=== PATIENT | female | born 1965 | race Caucasian/White ===

== ENCOUNTER 2016-11-24 22:53 | Emergency (ER) | payer OTHER, MEDICARE ==
[~2016-11-24] VITALS: Ht 175.3 cm; Wt 81.6 kg
[~2016-11-24 22:53] MED LIST: ADVIL200 MG PO; BETAMETHASONE D1 CRE TOP; BUSPIRONE HCL10 M1 PO; CARISOPRODOL350 MG PO; CLINDAMYCIN300 MG PO; DICLOFENAC SODI75 M3 PO; DULOXETINE HCL40 MG PO; DULOXETINE HYDR30 MG PO; GABAPENTIN600 M1 PO; GABAPENTIN600 MG PO; LIPITOR20 M2 PO; LOPRESSOR 25MG25 MG PO; LYRICA100 MG PO; MELATONIN3 M4 PO; METFORMIN HCL500 M2 PO; METHOCARBAMOL500 M1 PO; METOPROLOL TART50 MG PO; MS CONTIN30 M1 PO; MS CONTIN60 MG PO; NYSTATIN100000 U/2 TOP; OMEPRAZOLE D/R20 MG PO; OXYCODONE HCL10 M2 PO; OXYCODONE HYDRO10 M1 PO; OXYCODONE HYDRO15 MG PO; PERCOCET 325 MG1 TA2 PO; PLAVIX75 M1 PO; QUETIAPINE FUM100 M1 PO; QUETIAPINE FUM100 MG PO; REMERON 7.5MG7.5 MG PO; REMERON30 MG PO; SEROQUEL 100MG100 MG PO; SEROQUEL50 MG PO; SOMA350 M1 PO; SYNTHROID137 MCG PO; TYLENOL XSTR500 MG PO; VOLTAREN GEL1% TOP; XANAX0.25 M1 PO; XANAX0.5 MG PO; ZOFRAN ODT8 MG PO; ZOFRAN4 M1 SL
--- NOTE | 2016-11-24 23:19 | ED DYSPNEA/ASTHMA COMPLAINT ---
History of Present Illness General Chief Complaint: Dyspnea (COPD, CHF, Other) Stated Complaint: BIBA, SOB Source: patient Exam Limitations: no limitations Vital Signs & Intake/Output Vital Signs & Intake/Output Vital Signs Date Time Temp Pulse Resp B/P Pulse O2 O2 Flow FiO2 Ox Delivery Rate 11/25 0551 97.3 88 18 120/68 97 Room Air 11/25 0404 96.3 75 18 118/63 93 Room Air 11/24 2309 98.9 103 20 110/65 100 Room Air ED Intake and Output 11/25 0000 11/24 1200 Intake Total 0 Output Total Balance 0 Intake, Oral 0 Patient 180 lb Weight Allergies Coded Allergies: Penicillins (HIVES, RASH 02/24/16) hydromorphone (GI UPSET 02/24/16) Reconcile Medications Atorvastatin Calcium (Lipitor) 20 MG TABLET 20 MG PO DAILY HIGH CHOLESTEROL ( Reported) Buspirone HCl 10 MG TABLET 1 TAB PO BID depression (Reported) Buspirone HCl 10 MG TABLET 20 MG PO BID DEPRESSION (Reported) Carisoprodol (SOMA) 350 MG TABLET 350 MG PO DAILY SLEEP (Reported) Clopidogrel Bisulfate (Plavix) 75 MG TABLET (Unknown Dose) PO DIALY HIGH CHOLESTEROL (Reported) Duloxetine HCl 40 MG CAPSULE.DR 40 MG PO DAILY DEPRESSION (Reported) Gabapentin 600 MG TABLET 1 TAB PO TID pAIN (Reported) Levofloxacin (Levaquin) 500 MG TABLET 1 TAB PO DAILY bronchitis/pneumonia Levothyroxine Sodium (Synthroid) 0.075 MG TAB 0.075 MG PO DAILY AC THYROID ( Reported) Melatonin 3 MG TABLET 10 MG PO DAILY SLEEP (Reported) Metformin HCl (Metformin HCl ER) 500 MG TAB.ER.24 (Unknown Dose) PO BID DIABETIS (Reported) Methocarbamol 500 MG TABLET 1 TAB PO 4 TIMES/DAY muscle relaxant (Reported) Mirtazapine (Remeron 7.5MG (1/2 Of 15MG)) 7.5 MG HTAB 1 TAB PO QPM SLEEP/ MENTAL HEALTH (Reported) Morphine Sulfate (Ms Contin) [address] 1 TAB PO BID PAIN (Reported) Ondansetron (Zofran Odt) 4 MG TAB.RAPDIS 1 TAB SL TID PRN nausea Oxycodone HCl 10 MG TABLET 1 TAB PO Q6-PRN PRN pain (Reported) Pregabalin (Lyrica) 100 MG CAPSULE 1 CAP PO BID PAIN (Reported) Quetiapine Fumarate 100 MG TABLET 200 MG PO 0 Mental health Quetiapine Fumarate 100 MG TABLET 100 MG PO DAILY Mental health Triage Note: PT BIBA FROM HOME. PER EMS, PT COMPLAINING OF SOB THAT SHE HAS BEEN EXPERIENCING SINCE TUESDAY. PT RECENTLY WENT TO PCP AND WAS DIAGNOSED WITH BRONCHITIS, PT WAS PRESCRIBED PREDNISONE AND AZITHROMYCIN. PT STATES SHE HAS BEEN N/V, THEREFORE UNABLE TO KEEP DOWN PRESCRIBED MEDICATIONS. PT HAD 4 NEB TREATMENTS AT HOME WITH NO RELIEF. IN ROUTE TO ED, EMS ADMINISTERED 125 MG OF SOLU MEDROL, BS 241. UPON ED ARRIVAL PT ON 2L O2, O2 SAT 100%. PT COMPLAINING OF BACK PAIN AND TINGLING IN FINGERS AND TOES. PT ALERT AND ORIENTED. Triage Nurses Notes Reviewed? yes Onset: Gradual Duration: day(s): Timing: recent history Severity: mild, moderate Activities at Onset: none Prior Episodes/Possible Cause: occasional episodes Modifying Factors: Improves With: rest. Associated Symptoms: cough, wheezing HPI: 51-year-old woman, history of asthma, history of smoking, presents with 2-3 day history of cough, wheezing with phlegm. She states that she started azithromycin and prednisone by her primary care doctor, "but I am not better yet." She notes that, "I coughed so hard that I throw up.... And that I can't take my pain medications." She notes that she has no chest pain, fever, abdominal pain, nausea vomiting diarrhea. Past History Travel History Traveled to [place] past 21 day No Medical History Any Pertinent Medical History? 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 No Review of Systems Review of Systems Constitutional: Reports: no symptoms. EENTM: Reports: no symptoms. Respiratory: Reports: no symptoms. Cardiovascular: Reports: no symptoms. GI: Reports: no symptoms. Genitourinary: Reports: no symptoms. Musculoskeletal: Reports: no symptoms. Skin: Reports: no symptoms. Neurological/Psychological: Reports: no symptoms. Hematologic/Endocrine: Reports: no symptoms. Immunologic/Allergic: Reports: no symptoms. All Other Systems: Reviewed and Negative Physical Exam Physical Exam General Appearance: well developed/nourished, mild distress Head: atraumatic, normal appearance Eyes: Bilateral: normal appearance. Ears, Nose, Throat: normal pharynx, normal ENT inspection Neck: normal inspection, supple, full range of motion Respiratory: wheezing Cardiovascular: regular rate/rhythm Gastrointestinal: normal bowel sounds, soft, non-tender, no organomegaly Extremities: normal inspection, normal capillary refill, normal range of motion, no edema Neurologic/Psych: no motor/sensory deficits, awake, alert, oriented x 3 Skin: intact, normal color, warm/dry Core Measures ACS in differential dx? No Severe Sepsis Present: No Septic Shock Present: No Progress Differential Diagnosis: asthma, AMI Plan of Care: Orders Procedure Date/time Status TROPONIN LEVEL 11/25 0307 Complete EKG 11/25 0307 Active TROPONIN LEVEL 11/24 2318 Complete LIPASE 11/24 2318 Complete HEPATIC FUNCTION PANEL 11/24 2318 Complete D-DIMER 11/24 2318 Complete CBC WITHOUT DIFFERENTIAL 11/24 2318 Complete BASIC METABOLIC PANEL 11/24 2318 Complete AMYLASE 11/24 2318 Complete EKG 11/24 2254 Active Laboratory Tests 11/25/16 0400: Troponin I < 0.01 11/24/16 2325: Anion Gap 8, Estimated GFR > 60, BUN/Creatinine Ratio 13.3, Glucose 227 H, Calcium 8.9, Total Bilirubin 0.4, Direct Bilirubin 0.4, AST 22, ALT 27, Alkaline Phosphatase 132 H, Troponin I < 0.01, Total Protein 5.9 L, Albumin 3.1 L, Amylase < 30 L, Lipase 18 L, D-Dimer 385 H, CBC w Diff NO MAN DIFF REQ, RBC 4.05 L, MCV 88.1, MCH 29.2, RDW 14.6 H, MPV 8.4, Gran % 88.3 H, Lymphocytes % 5.4 L, Monocytes % 6.3, Eosinophils % 0, Basophils % 0 L, Absolute Granulocytes 5.4, Absolute Lymphocytes 0.3 L, Absolute Monocytes 0.4, Absolute Eosinophils 0, Absolute Basophils 0, PUBS MCHC 33.2 Diagnostic Imaging: Viewed by Me: Radiology Read. Discussed w/RAD: Radiology Read. Radiology Impression: ct angio - no vte... ground glass opacity consistent with inflammation. CXR Impression: ATELECTASIS VS INFILTRATE... FULL REPORT BELOW. Initial ED EKG: normal axis, normal intervals, normal p-waves, normal QRS complex, normal sinus rhythm Comments: PATIENT: TOSHA RAMESH PRESENT AGE: 51 PATIENT ACCOUNT NO: [id number] : 63 LOCATION: [facility] ORDERING PHYSICIAN: RAVI SON MD SERVICE DATE: 11/25/16 EXAM TYPE: CAT - CTA CHEST-PULMONARY EMBOLISM EXAMINATION: CT ANGIOGRAM OF THE CHEST WITH AND WITHOUT CONTRAST (CT PULMONARY ANGIOGRAM FOR PE) CLINICAL INFORMATION: Dyspnea with positive d-dimer. COMPARISON: Radiograph of the chest from 11/24/2016. CT from 07/06/2015. TECHNIQUE: Prior to contrast administration, noncontrast localization images were obtained. Subsequently, multidetector volumetric imaging was performed from the thoracic inlet to below the diaphragms following the administration of 87 mL Optiray 350 intravenous contrast. No contrast reaction reported Sagittal, coronal, and MIP oblique sagittal reformatted images were obtained on the CT workstation, uploaded to PACS, and reviewed. Total exam dose-length product 495 mGy-cm FINDINGS: QUALITY OF STUDY/CONTRAST BOLUS: Satisfactory. PULMONARY ARTERIES: No central or segmental pulmonary emboli. THORACIC AORTA: No aneurysm or dissection. LUNG: The central airways are patent. There are diffuse bilateral groundglass opacities. Associated bronchial wall thickening noted. The groundglass opacities are seen throughout portions of all lobes. PLEURA: No pleural effusion or pneumothorax. MEDIASTINUM: Normal heart size. No pericardial effusion. No hilar or mediastinal lymphadenopathy. No evidence of septal bowing or right heart strain. CHEST WALL/AXILLA: No axillary or internal mammary lymphadenopathy. OSSEOUS STRUCTURES: No acute or suspicious osseous abnormality. Mild degenerative changes of the spine. UPPER ABDOMEN: Unremarkable. No reflux of contrast into the hepatic veins to suggest elevated right heart pressures. IMPRESSION: 1. No evidence of pulmonary embolism. 2. Groundglass opacity seen throughout both lungs favoring an infectious or inflammatory process. Associated bronchial wall thickening. VTE: negative DICTATED BY: STANLEY ZACARIAS MD DATE/TIME DICTATED:11/25/16416 COAL HAULER:LISA DATE/TIME TRANSCRIBED:11/25/16416 CONFIDENTIAL, DO NOT COPY WITHOUT APPROPRIATE AUTHORIZATION. <Electronically signed in Other Vendor System> SIGNED BY: DEANN KINCAID,STANLEY 11/25 PATIENT: TOSHA RAMESH PRESENT AGE: 51 PATIENT ACCOUNT NO: [id number] : 63 LOCATION: [facility] ORDERING PHYSICIAN: RAVI SON MD SERVICE DATE: 11/24/16 EXAM TYPE: RAD - XRY-PORTABLE CHEST XRAY EXAMINATION: XR PORTABLE CHEST CLINICAL INFORMATION: Dyspnea COMPARISON: 02/24/2016 TECHNIQUE: Portable AP view of the chest was obtained. FINDINGS: The lungs are well expanded. Increased hazy bibasilar opacities, especially at the right base. No effusion. No pneumothorax. The cardiomediastinal silhouette is within normal limits. No acute osseous abnormality. IMPRESSION: Increased basilar opacities, right greater than left. Findings may represent atelectasis or pneumonia. DICTATED BY: STANLEY ZACARIAS MD DATE/TIME DICTATED:11/24/162348 COAL HAULER:LISA DATE/TIME TRANSCRIBED:11/24/162348 CONFIDENTIAL, DO NOT COPY WITHOUT APPROPRIATE AUTHORIZATION. <Electronically signed in Other Vendor System> SIGNED BY: STANLEY ZACARIAS MD 11/24 2698 Departure Departure Disposition: HOME OR SELF CARE Condition: Stable Clinical Impression Primary Impression: Bronchitis Secondary Impressions: Vomiting Referrals: EUGENIA KINCAID,CLEVELAND Narayanan (PCP/Family) Departure Forms: Customer Survey General Discharge Information Prescriptions: Current Visit Scripts Levofloxacin (Levaquin) 1 TAB PO DAILY #10 TAB Ondansetron (Zofran Odt) 1 TAB SL TID PRN nausea #10 TAB Ref 1 Comments 11/25/16, 5:40am.... pt feeling better. ct scan negative for PE, but suggestive of bronchitis/early pneuomonia. Will rx with levaquin rather than azithromycin given prevalence of resistance in the community. She has been in ED for nearly 7 hours and has been stable throughout on room air, without chest pain. She ambulates well. Close follow up encouraged. Critical Care Note Critical Care Note Critical Care Time: non-applicable
[2016-11-24 23:42] LABS: ABSOLUTE BASOPHIL COUNT 0 /CUMM (0.0-0.2); ABSOLUTE EOSINOPHIL COUNT 0 /CUMM (0.0-0.7); ABSOLUTE GRANULOCYTE CT 5.4 /CUMM (1.4-6.5); ABSOLUTE LYMPH COUNT 0.3 /CUMM (1.2-3.4); ABSOLUTE MONOCYTE COUNT 0.4 /CUMM (0.10-0.60); BASOPHIL % 0 % (0.0-2.0); EOSINOPHIL % 0 % (0-5); HEMATOCRIT 35.6 % (37-47); MEAN CORPUSCULAR HGB 29.2 PG (27.0-31.0); MEAN CORPUSCULAR HGB CONC 33.2 G/DL (33.0-37.0); MEAN CORPUSCULAR VOLUME 88.1 FL (81.0-99.0); MEAN PLATELET VOLUME 8.4 FL (7.4-10.4); PLATELET COUNT 189 /CUMM (130-400); RBC DISTRIBUTION WIDTH 14.6 % (11.5-14.5); RED BLOOD CELL CT 4.05 /CUMM (4.20-5.40); WHITE BLOOD CELL COUNT 6.1 /CUMM (4.8-10.8)
[2016-11-24 23:50] LABS: GRANULOCYTE % 88.3 % (42.2-75.2)
--- NOTE | 2016-11-24 23:53 | RADIOLOGY REPORT ---
EXAMINATION: XR PORTABLE CHEST CLINICAL INFORMATION: Dyspnea COMPARISON: 02/24/2016 TECHNIQUE: Portable AP view of the chest was obtained. FINDINGS: The lungs are well expanded. Increased hazy bibasilar opacities, especially at the right base. No effusion. No pneumothorax. The cardiomediastinal silhouette is within normal limits. No acute osseous abnormality. IMPRESSION: Increased basilar opacities, right greater than left. Findings may represent atelectasis or pneumonia.
--- NOTE | 2016-11-25 04:26 | CT SCAN REPORT ---
EXAMINATION: CT ANGIOGRAM OF THE CHEST WITH AND WITHOUT CONTRAST (CT PULMONARY ANGIOGRAM FOR PE) CLINICAL INFORMATION: Dyspnea with positive d-dimer. COMPARISON: Radiograph of the chest from 11/24/2016. CT from 07/06/2015. TECHNIQUE: Prior to contrast administration, noncontrast localization images were obtained. Subsequently, multidetector volumetric imaging was performed from the thoracic inlet to below the diaphragms following the administration of 87 mL Optiray 350 intravenous contrast. No contrast reaction reported Sagittal, coronal, and MIP oblique sagittal reformatted images were obtained on the CT workstation, uploaded to PACS, and reviewed. Total exam dose-length product 495 mGy-cm FINDINGS: QUALITY OF STUDY/CONTRAST BOLUS: Satisfactory. PULMONARY ARTERIES: No central or segmental pulmonary emboli. THORACIC AORTA: No aneurysm or dissection. LUNG: The central airways are patent. There are diffuse bilateral groundglass opacities. Associated bronchial wall thickening noted. The groundglass opacities are seen throughout portions of all lobes. PLEURA: No pleural effusion or pneumothorax. MEDIASTINUM: Normal heart size. No pericardial effusion. No hilar or mediastinal lymphadenopathy. No evidence of septal bowing or right heart strain. CHEST WALL/AXILLA: No axillary or internal mammary lymphadenopathy. OSSEOUS STRUCTURES: No acute or suspicious osseous abnormality. Mild degenerative changes of the spine. UPPER ABDOMEN: Unremarkable. No reflux of contrast into the hepatic veins to suggest elevated right heart pressures. IMPRESSION: 1. No evidence of pulmonary embolism. 2. Groundglass opacity seen throughout both lungs favoring an infectious or inflammatory process. Associated bronchial wall thickening. VTE: negative
[2016-11-25] MEDS ORDERED: LEVAQUIN500 M1 PO (05:40)
[2016-11-25] MEDS ORDERED: ZOFRAN ODT4 M1 SL (05:40)
[2016-11-25 05:51] VITALS: BP 120/68
== END 2016-11-25 05:58 ==
LOC: ERH 22:53
PROVIDERS: Pediatrics
DX: J40 Bronchitis, not specified as acute or chronic (principal); F17.210 Nicotine dependence, cigarettes, uncomplicated
CPT/HCPCS: 93005; 93010; 96374; 96375; J1885; J2405

== ENCOUNTER 2016-12-06 19:01 | Emergency (ER) | payer OTHER, MEDICARE ==
[~2016-12-06] VITALS: Ht 172.7 cm; Wt 102.1 kg
[~2016-12-06 19:01] MED LIST changes: +LEVAQUIN500 M1 PO; +ZOFRAN ODT4 M1 SL
[2016-12-06 19:28] VITALS: BP 125/79
--- NOTE | 2016-12-06 20:31 | ED UPPER/LOWER EXTREMITY COMPL ---
History of Present Illness General Chief Complaint: Shoulder Injury Stated Complaint: RIGHT SHOULDER PAIN Source: patient, old records Exam Limitations: no limitations Vital Signs & Intake/Output Vital Signs & Intake/Output Vital Signs Date Time Temp Pulse Resp B/P Pulse O2 O2 Flow FiO2 Ox Delivery Rate 12/06 1927 96.8 67 18 125/79 96 Room Air Allergies Coded Allergies: Penicillins (HIVES, RASH 02/24/16) hydromorphone (GI UPSET 02/24/16) Reconcile Medications Atorvastatin Calcium (Lipitor) 20 MG TABLET 20 MG PO DAILY HIGH CHOLESTEROL ( Reported) Buspirone HCl 10 MG TABLET 1 TAB PO BID depression (Reported) Buspirone HCl 10 MG TABLET 20 MG PO BID DEPRESSION (Reported) Carisoprodol (SOMA) 350 MG TABLET 350 MG PO DAILY SLEEP (Reported) Clopidogrel Bisulfate (Plavix) 75 MG TABLET (Unknown Dose) PO DIALY HIGH CHOLESTEROL (Reported) Diclofenac Sodium 75 MG TABLET.DR 1 TAB PO BID PRN PAIN Duloxetine HCl 40 MG CAPSULE.DR 40 MG PO DAILY DEPRESSION (Reported) Gabapentin 600 MG TABLET 1 TAB PO TID pAIN (Reported) Levofloxacin (Levaquin) 500 MG TABLET 1 TAB PO DAILY bronchitis/pneumonia Levothyroxine Sodium (Synthroid) 0.075 MG TAB 0.075 MG PO DAILY AC THYROID ( Reported) Melatonin 3 MG TABLET 10 MG PO DAILY SLEEP (Reported) Metformin HCl (Metformin HCl ER) 500 MG TAB.ER.24 (Unknown Dose) PO BID DIABETIS (Reported) Methocarbamol 500 MG TABLET 1 TAB PO 4 TIMES/DAY muscle relaxant (Reported) Mirtazapine (Remeron 7.5MG (1/2 Of 15MG)) 7.5 MG HTAB 1 TAB PO QPM SLEEP/ MENTAL HEALTH (Reported) Morphine Sulfate (Ms Contin) [address] 1 TAB PO BID PAIN (Reported) Ondansetron (Zofran Odt) 4 MG TAB.RAPDIS 1 TAB SL TID PRN nausea Oxycodone HCl 10 MG TABLET 1 TAB PO Q6-PRN PRN pain (Reported) Pregabalin (Lyrica) 100 MG CAPSULE 1 CAP PO BID PAIN (Reported) Quetiapine Fumarate 100 MG TABLET 200 MG PO 2200 Mental health Quetiapine Fumarate 100 MG TABLET 100 MG PO DAILY Mental health Triage Note: PT TO ED C/O RT SHOULDER PAIN, DENIES INJURY. 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 MS CONTIN 30 MG BID LAST TAKEN AT 10 AM. IS IN PAIN MANAGEMENT FOR CHRONIC BACK PAIN Triage Nurses Notes Reviewed? yes HPI: Patient presents for evaluation of right shoulder pain began gradually about 4 days ago. The pain has been constant, getting worse, and is now characterized as an 8 out of 10 pain. Patient's pain worsens with range of movement. Nothing seems to make it feel better. Patient is already taking oxycodone and morphine because her back pain and it doesn't seem to be helping her shoulder pain. Patient also feels some tingling in the right upper extremity. Past History Travel History Traveled to [place] past 21 day No Medical History Any Pertinent Medical History? 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 No Review of Systems Review of Systems Constitutional: Reports: no symptoms. EENTM: Reports: no symptoms. Respiratory: Reports: no symptoms. Cardiovascular: Reports: no symptoms. Gastrointestinal/Abdominal: Reports: no symptoms. Genitourinary: Reports: no symptoms. Musculoskeletal: Reports: see HPI. Skin: Reports: no symptoms. Neurological/Psychological: Reports: no symptoms. Hematologic/Endocrine: Reports: no symptoms. Immunological: Reports: no symptoms. All Other Systems: Reviewed and Negative Physical Exam Physical Exam General Appearance: SEE BELOW Comments: Gen.: Well-nourished, well-developed, no acute respiratory distress. Head: Normocephalic, atraumatic. Eyes: Normal inspection bilaterally Ears: Normal inspection bilaterally Nose: Normal inspection, nasal cannula in place Throat/mouth : Moist mucosa Neck: Supple, full range of motion, no goiter Heart: Regular rate and rhythm Lungs: Quiet respirations Back: Normal range of motion Extremities: Decreased range of motion of the right upper extremity due to shoulder pain, tenderness in the bicipital groove, the right upper cavity is otherwise neurovascularly intact. Neurologic: Cranial nerves grossly intact, speech is clear Skin: warm and dry Psychiatric: Calm, cooperative, no apparent delusions or hallucinations Progress Differential Diagnosis: sprain, tendon injury, ROTATOR CUFF INJURY, SHOULDER ARTHRITIS, TENDINITIS Plan of Care: Orders Procedure Date/time Status Durable Medical Equipment 12/06 2099 Active Current Medications Sig/Alden Start time Last Medication Dose Stop Time Status Admin Ketorolac 30 MG ONCE ONE 12/06 2099 UNVr Tromethamine 12/06 2100 (Toradol) Morphine Sulfate 4 MG ONCE ONE 12/06 2099 UNVr (Morphine) 12/06 2100 Diagnostic Imaging: Discussed w/RAD: Radiology Read. Radiology Impression: PATIENT: TOSHA RAMESH PRESENT AGE: 51 PATIENT ACCOUNT NO: [id number] : 63 LOCATION: [facility] ORDERING PHYSICIAN: MURRAY ZARAGOZA MD SERVICE DATE: 12/06/16 EXAM TYPE: RAD - XRY-SHOULDER COMPLETE-RIGHT EXAMINATION: XR SHOULDER, RIGHT CLINICAL INFORMATION : Evaluate for sprain. Rotator cuff injury. COMPARISON: Chest x-ray dated 2016 TECHNIQUE: AP external rotation, Grashey, scapular Y, and axillary views of the right shoulder. FINDINGS: Normal bony mineralization. No evidence of acute fracture or dislocation. Degenerative changes right acromioclavicular joint. Humeral head maintains normal round contour. Subtle subcortical cystic changes noted in the humeral neck/ subcapital region. Visualized right ribs and visualized portions of the scapula and clavicle are intact. IMPRESSION: Mild degenerative changes right acromioclavicular joint. No acute osseous abnormality. DICTATED BY: DOROTHY BARBER MD DATE/TIME DICTATED:12/06/162025 BAG ADJUSTER:LISA DATE/TIME TRANSCRIBED:12/06/162025 CONFIDENTIAL, DO NOT COPY WITHOUT APPROPRIATE AUTHORIZATION. <Electronically signed in Other Vendor System> SIGNED BY: DOROTHY BARBER MD 12/06/162031 Comments: 12/06/2016 9:01:16 PM Laura ridcisco is here in the emergency department, medications and shoulder mobilizer ordered. Departure Departure Disposition: HOME OR SELF CARE Condition: Stable Clinical Impression Primary Impression: Right shoulder pain Qualifiers: Chronicity: acute Qualified Code: M25.511 - Pain in right shoulder Secondary Impressions: Arthritis of right shoulder region Referrals: EUGENIA KINCAID,[place] Narayanan (PCP/Family) Additional Instructions: Continue your current pain medications. Discontinue the ibuprofen and begin Voltaren as prescribed. Use the shoulder immobilizer as needed to rest her shoulder. Follow-up with your primary care physician in one week for reevaluation. Return if any concerns or sudden worsening. Please note that there might be incidental findings in your evaluation that are unrelated to the current emergency department visit. Please notify your primary care doctor about this emergency department visit in order to obtain and review all of the testing performed so that these incidental findings can be monitored as needed. If you had an x-ray performed, please understand that some fractures may not be seen on the initial set of x-rays. If your symptoms persist you might need a repeat set of x-rays to check for such a fracture. If you had a laceration evaluated, please understand that foreign bodies such as glass or wood may not be visible to the naked eye or on plain x-rays. If the wound becomes red, swollen, increasingly more painful or if there is any drainage from the wound, please have it reevaluated by a physician for the possibility of a retained foreign body. Thank you for choosing the [facility] Emergency Department for your care. It was a pleasure to serve you today. Murray Zaragoza M.D. [facility] Departure Forms: Customer Survey General Discharge Information Prescriptions: Current Visit Scripts Diclofenac Sodium 1 TAB PO BID PRN PAIN #14 TAB
[2016-12-06] MEDS ORDERED: DICLOFENAC SODI75 M2 PO (20:48)
[2016-12-06] MEDS ORDERED: QUETIAPINE FUMA50 M1 PO (21:19)
[2016-12-06] MEDS ORDERED: MELATONIN10 M2 PO (21:20)
[2016-12-06] MEDS ORDERED: LIPITOR40 M1 PO (21:21)
[2016-12-06] MEDS ORDERED: PROZAC20 M2 PO (21:22)
[2016-12-06] MEDS ORDERED: OMEPRAZOLE40 M1 PO (21:22)
[2016-12-06] MEDS ORDERED: METOPROLOL TART50 M1 PO (21:23)
[2016-12-06] MEDS ORDERED: LYRICA100 M1 PO (21:25)
== END 2016-12-06 21:15 ==
LOC: ERH 19:01
DX: M25.511 Pain in right shoulder (principal)
CPT/HCPCS: 73030-RT; 96372; J1885

== ENCOUNTER 2017-02-23 22:50 | Emergency (ER) | payer OTHER, MEDICARE ==
[~2017-02-23] VITALS: Ht 172.7 cm; Wt 181.4 kg
[~2017-02-23 22:50] MED LIST changes: +DICLOFENAC SODI75 M2 PO; +LIPITOR40 M1 PO; +LYRICA100 M1 PO; +MELATONIN10 M2 PO; +METOPROLOL TART50 M1 PO; +OMEPRAZOLE40 M1 PO; +PROZAC20 M2 PO; +QUETIAPINE FUMA50 M1 PO
--- NOTE | 2017-02-23 23:12 | ED MVC/FALL/TRAUMA COMPLAINT ---
History of Present Illness General Chief Complaint: Fall Stated Complaint: GARVIN,NECK AND RIGHT ARM PAIM S/P FALL Source: patient Exam Limitations: not alert/orientated Vital Signs & Intake/Output Vital Signs & Intake/Output Vital Signs Date Time Temp Pulse Resp B/P B/P Pulse O2 O2 Flow FiO2 Mean Ox Delivery Rate 02/24 0500 98.6 63 15 110/73 95 Room Air 02/24 0229 60 14 98 Room Air 02/24 0101 58 12 93 Room Air 02/24 0029 Room Air 02/24 0008 57 12 92 Room Air 02/23 2303 98.9 65 15 106/74 100 Room Air ED Intake and Output 02/24 0000 02/23 1200 Intake Total Output Total Balance Patient 400 lb Weight Weight Reported by Patient Measurement Method Allergies Coded Allergies: Penicillins (HIVES, RASH 02/24/16) hydromorphone (GI UPSET 02/24/16) Reconcile Medications Atorvastatin Calcium (Lipitor) 40 MG TABLET 1 TAB PO DAILY CHOLESTEROL ( Reported) Buspirone HCl 10 MG TABLET 30 MG PO BID DEPRESSION (Reported) Carisoprodol (SOMA) 350 MG TABLET 350 MG PO 4XDAILY MUSCLE RELAXER (Reported) Diclofenac Sodium 75 MG TABLET.DR 1 TAB PO BID PRN PAIN Duloxetine HCl 40 MG CAPSULE.DR 40 MG PO DAILY DEPRESSION (Reported) Fluoxetine HCl (Prozac) 20 MG CAPSULE 1 CAP PO DAILY MENTAL HEALTH (Reported) Gabapentin 600 MG TABLET 1 TAB PO 6XDAILY NERVE PAIN (Reported) Levothyroxine Sodium (Synthroid) 137 MCG TABLET 1 TAB PO DAILY THYROID ( Reported) Melatonin 10 MG TABLET 1 TAB PO QHS SUPPLEMENT (Reported) Metformin HCl (Metformin HCl ER) 500 MG TAB.ER.24 1 TAB PO BID DM (Reported) Metoprolol Tartrate 50 MG TABLET 1 TAB PO BID HEART/BP (Reported) Morphine Sulfate (Ms Contin) 30 MG TABLET.ER 1 TAB PO BID PAIN (Reported) Omeprazole 40 MG CAPSULE.DR 1 CAP PO DAILY GI (Reported) Oxycodone HCl 10 MG TABLET 1 TAB PO Q6-PRN PRN pain (Reported) Pregabalin (Lyrica) 100 MG CAPSULE 1 CAP PO BID NERVE PAIN (Reported) Quetiapine Fumarate 50 MG TABLET 150 MG PO QHS MENTAL HEALTH (Reported) Triage Note: PT TO ED FOR A FALL LAST NIGHT, PT ARRIVES IN TRIAGE EXTREMELY SLEEPY, PIN POINT PUPILS. PT ENDORSES NARCOTIC PAIN MEDS TONIGHT STATING "I TOOK MY NORMAL MORPHINE AND OXYCODONE" PT REPEATEDLY FALLING ASLEEP IN TRIAGE. Triage Nurses Notes Reviewed? yes Onset: Abrupt Duration: day(s): Timing: recent history Severity: mild, moderate Injuries/Fall Location: head, neck Method of Injury: fall Loss of Consciousness: no loss of consciousness Modifying Factors: Improves With: rest. Associated Symptoms: PRESENT ON FOREHEAD, NECK PAIN, HEADACHE HPI: 52yo woman, history of chronic pain, presents after a fall yesterday. She states that she was doing chores at home. She had a mechanical fall. She hit her head. She notes a mild headache and neck pain. She also notes left shoulder pain. She is able to ambulate. This occurred yesterday evening. She notes with that with the continued pain she sought evaluation. She is otherwise well and has no other concerns. Of note she did not lose consciousness. She is been able to ambulate and use all of her extremities without problem. Past History Travel History Traveled to [place] past 21 day No Medical History Any Pertinent Medical History? 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 No Review of Systems Review of Systems Constitutional: Reports: no symptoms. Eyes: Reports: no symptoms. Ears, Nose, Throat, Mouth: Reports: no symptoms. Respiratory: Reports: no symptoms. Cardiovascular: Reports: no symptoms. Gastrointestinal/Abdominal: Reports: no symptoms. Genitourinary: Reports: no symptoms. Musculoskeletal: Reports: no symptoms. Skin: Reports: no symptoms. Neurological/Psychological: Reports: no symptoms. All Other Systems: Reviewed and Negative Physical Exam Physical Exam General Appearance: well developed/nourished, no apparent distress Head: ECCHYMOSIS ON THE RIGHT FOREHEAD APPROXIMATELY 4 X 4 CENTIMETERS. mINIMAL TENDERNESS. nO BONY STEP-OFF Eyes: Bilateral: normal appearance, PERRL, EOMI, other (pINpOINT PUPILS). Ears, Nose, Throat, Mouth: hearing grossly normal, moist mucous membrane Neck: normal inspection, supple, full range of motion, paraspinous muscle tender Respiratory: normal breath sounds, chest non-tender, no respiratory distress, quiet respiration, lungs clear Cardiovascular: regular rate/rhythm Gastrointestinal: normal bowel sounds, soft, non-tender, no organomegaly Back: normal inspection, normal range of motion Extremities: normal range of motion Neurologic/Psych: no motor/sensory deficits, awake, alert, oriented x 3 Skin: intact, normal color, warm/dry Core Measures ACS in differential dx? No Severe Sepsis Present: No Septic Shock Present: No Progress Differential Diagnosis: C/T/L spine injury, ICH Plan of Care: Orders Procedure Date/time Status URINE DRUG SCREEN FOR ER ONLY 02/24 2312 Complete URINALYSIS 02/24 2312 Complete THYROID STIMULATING HORMONE 02/24 2312 Complete TROPONIN LEVEL 02/24 2312 Complete ETHANOL 02/24 2312 Complete COMPREHENSIVE METABOLIC PANEL 02/24 2312 Complete CBC WITHOUT DIFFERENTIAL 02/24 2312 Complete Laboratory Tests 02/24/17 0219: Urine Opiates Screen > 4000.00 H, Methadone Screen 69, Barbiturate Screen < 60, Ur Phencyclidine Scrn < 6.00, Amphetamines Screen < 100, U Benzodiazepines Scrn > 800 H, Urine Cocaine Screen < 50, Urine Cannabis Screen > 80.00 H, Urine Color STRAW, Urine Clarity CLEAR, Urine pH 6.5, Ur Specific [place] <= 1.005, Urine Protein NEG, Urine Ketones NEG, Urine Nitrite NEG, Urine Bilirubin NEG, Urine Urobilinogen 0.2, Ur Leukocyte Esterase NEG, Ur Microscopic EXAM NOT REQUIRED, Urine Hemoglobin NEG, Urine Glucose NEG 02/24/17 0002: Anion Gap 10, Estimated GFR > 60, BUN/Creatinine Ratio 5.0 L, Glucose 93, Calcium 9.2, Total Bilirubin 0.3, AST 19, ALT 18, Alkaline Phosphatase 122, Troponin I < 0.01, Total Protein 6.5, Albumin 3.8, Globulin 2.7, Albumin/ Globulin Ratio 1.4, TSH 19.700 H, CBC w Diff NO MAN DIFF REQ, RBC 4.25, MCV 85.1, MCH 28.3, RDW 15.4 H, MPV 8.7, Gran % 56.5, Lymphocytes % 29.9, Monocytes % 8.4, Eosinophils % 4.7, Basophils % 0.5, Absolute Granulocytes 4.3, Absolute Lymphocytes 2.3, Absolute Monocytes 0.6, Absolute Eosinophils 0.4, Absolute Basophils 0, PUBS MCHC 33.3, Serum Alcohol < 10.0 Diagnostic Imaging: Viewed by Me: CT Scan. Discussed w/RAD: CT Scan. Radiology Impression: HEAD/CERVICAL CT - NO FX/NO BLEED, LEFT SHOULDER... NO FX. CXR Impression: no acute abnormality, no infiltrates, normal size heart, normal mediastinum Comments: PATIENT: TOSHA RAMESH PRESENT AGE: 52 PATIENT ACCOUNT NO: [id number] : 63 LOCATION: [facility] ORDERING PHYSICIAN: RVAI SON MD SERVICE DATE: 02/23/17 EXAM TYPE: RAD - XRY-PORTABLE CHEST XRAY EXAMINATION: XR PORTABLE CHEST CLINICAL INFORMATION: Fall, trauma COMPARISON: 11/24/2016 TECHNIQUE: Portable frontal view of the chest was obtained. FINDINGS: The lungs are well expanded. There is no focal consolidation, edema, or effusion. Improved aeration of the lung bases from prior imaging. No pneumothorax. The cardiomediastinal silhouette is within normal limits. No acute osseous abnormality. IMPRESSION: No acute pulmonary findings. DICTATED BY: STANLEY ZACARIAS MD DATE/TIME DICTATED:02/23/172348 MOLD BREAKER:LISA DATE/TIME TRANSCRIBED:02/23/172348 CONFIDENTIAL, DO NOT COPY WITHOUT APPROPRIATE AUTHORIZATION. <Electronically signed in Other Vendor System> SIGNED BY: STANLEY ZACARIAS MD 02/23 1333 PATIENT: TOSHA RAMESH PRESENT AGE: 52 PATIENT ACCOUNT NO: [id number] : 63 LOCATION: [facility] ORDERING PHYSICIAN: RAVI SON MD SERVICE DATE: 02/23/17 EXAM TYPE: CAT - CT CERV SPINE WO IV CONTRAST; CT HEAD WO IV CONTRAST EXAMINATION: CT HEAD WITHOUT CONTRAST CT CERVICAL SPINE WITHOUT CONTRAST CLINICAL INFORMATION: Injury. COMPARISON: CT head 02/24/2016 TECHNIQUE: Imaging was performed from the skull base to vertex without intravenous administration of contrast. In addition, helical noncontrast CT imaging was acquired through the cervical spine and source images were reviewed along with axial reconstructions and sagittal and coronal MPRs. DLP: 915.54 mGy-cm FINDINGS: HEAD: No intracranial mass, hemorrhage, or midline shift is visualized. The ventricles and sulci are age-appropriate. No extra-axial collections are identified. The paranasal sinuses and mastoid air cells are well aerated. CERVICAL SPINE: There is no evidence of acute cervical spine fracture. Cervical vertebrae have normal alignment. There is degenerative disc disease. Cervical disc height narrowing C5-C6 and C6-C7 with endplate spurs of the vertebrae both anterior and posterior. Posterior spurs encroach into the neural foramina bilaterally. There is degenerative facet joint arthrosis most significant at the upper cervical spine bilaterally. No pre- or paravertebral soft tissue abnormality is identified. Limited assessment of the lung apices is unremarkable. IMPRESSION: 1. No acute intracranial pathology. 2. No CT evidence of acute cervical spine fracture or traumatic subluxation. Degenerative disease of cervical spine DICTATED BY: BELIA LEGER MD DATE/TIME DICTATED:02/23/172330 MOLD BREAKER:LISA DATE/TIME TRANSCRIBED:02/23/172330 CONFIDENTIAL, DO NOT COPY WITHOUT APPROPRIATE AUTHORIZATION. <Electronically signed in Other Vendor System> SIGNED BY: BELIA LEGER MD 02/23/17 3319 Departure Departure Disposition: HOME OR SELF CARE Condition: Stable Clinical Impression Primary Impression: Fall Secondary Impressions: Head injury, Medication side effects, Polypharmacy Referrals: EUGENIA KINCAID,[place] Narayanan (PCP/Family) Departure Forms: Customer Survey General Discharge Information Comments 02/24/17, 4:33am... pt feeling better, resting comfortably. negative studies. She feels well and would like to go home. Discussed at length with patient. 02/24/17, 5:31AM... pt ambulated well onto gurney to go home. Pt expressed wish to go home and confidence that she would be safe. I discussed polypharmacy and suggested she not smoke marijuana and/or should consider reducing her pain regimen.
--- NOTE | 2017-02-23 23:55 | CT SCAN REPORT ---
EXAMINATION: CT HEAD WITHOUT CONTRAST CT CERVICAL SPINE WITHOUT CONTRAST CLINICAL INFORMATION: Injury. COMPARISON: CT head 02/24/2016 TECHNIQUE: Imaging was performed from the skull base to vertex without intravenous administration of contrast. In addition, helical noncontrast CT imaging was acquired through the cervical spine and source images were reviewed along with axial reconstructions and sagittal and coronal MPRs. DLP: 915.54 mGy-cm FINDINGS: HEAD: No intracranial mass, hemorrhage, or midline shift is visualized. The ventricles and sulci are age-appropriate. No extra-axial collections are identified. The paranasal sinuses and mastoid air cells are well aerated. CERVICAL SPINE: There is no evidence of acute cervical spine fracture. Cervical vertebrae have normal alignment. There is degenerative disc disease. Cervical disc height narrowing C5-C6 and C6-C7 with endplate spurs of the vertebrae both anterior and posterior. Posterior spurs encroach into the neural foramina bilaterally. There is degenerative facet joint arthrosis most significant at the upper cervical spine bilaterally. No pre- or paravertebral soft tissue abnormality is identified. Limited assessment of the lung apices is unremarkable. IMPRESSION: 1. No acute intracranial pathology. 2. No CT evidence of acute cervical spine fracture or traumatic subluxation. Degenerative disease of cervical spine
--- NOTE | 2017-02-23 23:55 | RADIOLOGY REPORT ---
EXAMINATION: XR PORTABLE CHEST CLINICAL INFORMATION: Fall, trauma COMPARISON: 11/24/2016 TECHNIQUE: Portable frontal view of the chest was obtained. FINDINGS: The lungs are well expanded. There is no focal consolidation, edema, or effusion. Improved aeration of the lung bases from prior imaging. No pneumothorax. The cardiomediastinal silhouette is within normal limits. No acute osseous abnormality. IMPRESSION: No acute pulmonary findings.
--- NOTE | 2017-02-23 23:56 | RADIOLOGY REPORT ---
EXAMINATION: XR SHOULDER, RIGHT CLINICAL INFORMATION: Fall, trauma COMPARISON: 12/06/2016 TECHNIQUE: Two views of the right shoulder. FINDINGS: No fracture or dislocation. The right humeral head articulates appropriately with the glenoid. The acromioclavicular joint is intact. Mild degenerative changes are noted. The visualized lung is clear. IMPRESSION: No acute fracture or dislocation.
[2017-02-24 00:10] LABS: ABSOLUTE BASOPHIL COUNT 0 /CUMM (0.0-0.2); ABSOLUTE EOSINOPHIL COUNT 0.4 /CUMM (0.0-0.7); ABSOLUTE GRANULOCYTE CT 4.3 /CUMM (1.4-6.5); ABSOLUTE LYMPH COUNT 2.3 /CUMM (1.2-3.4); ABSOLUTE MONOCYTE COUNT 0.6 /CUMM (0.10-0.60); BASOPHIL % 0.5 % (0.0-2.0); EOSINOPHIL % 4.7 % (0-5); GRANULOCYTE % 56.5 % (42.2-75.2); HEMATOCRIT 36.2 % (37-47); MEAN CORPUSCULAR HGB 28.3 PG (27.0-31.0); MEAN CORPUSCULAR HGB CONC 33.3 G/DL (33.0-37.0); MEAN CORPUSCULAR VOLUME 85.1 FL (81.0-99.0); MEAN PLATELET VOLUME 8.7 FL (7.4-10.4); PLATELET COUNT 222 /CUMM (130-400); RBC DISTRIBUTION WIDTH 15.4 % (11.5-14.5); RED BLOOD CELL CT 4.25 /CUMM (4.20-5.40); WHITE BLOOD CELL COUNT 7.5 /CUMM (4.8-10.8)
[2017-02-24 05:00] VITALS: BP 110/73
== END 2017-02-24 05:26 ==
LOC: ERH 22:50
PROVIDERS: Pediatrics
DX: S09.90XA Unspecified injury of head, initial encounter (principal); T40.605A Adverse effect of unspecified narcotics, initial encounter
CPT/HCPCS: 73030-RT; 80307; 81003; G0480

== ENCOUNTER 2018-02-25 10:04 | Inpatient (IN) | payer OTHER, MEDICARE ==
[~2018-02-25] VITALS: Ht 172.7 cm; Wt 111.1 kg
[~2018-02-25 10:04] MED LIST changes: +CYMBALTA30 M1 PO; +CYMBALTA60 M1 PO; +DIBUCAINE30 GM TOP; +FLUCONAZOLE200 M1 PO; +HALOPERIDOL2 M1 PO; +HYDROCORTISONE10 M2 PO; +LEVOTHYROXINE150 MCG PO; +MORPHINE SULFAT15 M3 PO; +NYSTATIN15 G1 TOP; +OXYCODONE-ACET1 EACH PO; +ROZEREM8 M1 PO; +SYNTHROID175 MCG PO
--- NOTE | 2018-02-25 10:45 | RADIOLOGY REPORT ---
EXAMINATION: XR CHEST CLINICAL INFORMATION: Shortness of breath and cough. Congestion and fever. Evaluate for pneumonia. COMPARISON: 08/11/2017 TECHNIQUE: Chest, 2 views FINDINGS: Lungs are well expanded. Peribronchial interstitial thickening in both lungs is new compared to 08/11/2017. Also, there are some new patchy airspace opacities in bilateral lower lung zones. Cardiac silhouette is normal in size. The hilar contours are normal. Trachea is midline position. The visualized bones are intact. IMPRESSION: Abnormal chest. Findings are consistent with inflammation/infection of airways and pneumonia. No pleural effusion.
--- NOTE | 2018-02-25 11:11 | ED DYSPNEA/ASTHMA COMPLAINT ---
History of Present Illness General Chief Complaint: Upper Respiratory Sx/Fever Source: patient Exam Limitations: no limitations Vital Signs & Intake/Output Vital Signs & Intake/Output Vital Signs Date Time Temp Pulse Resp B/P B/P Pulse O2 O2 Flow FiO2 Mean Ox Delivery Rate 02/25 1251 96.1 71 20 100/59 88 02/25 1008 97.6 98 18 148/94 93 Room Air Room Air Allergies Coded Allergies: Penicillins (HIVES, RASH 02/24/16) hydromorphone (GI UPSET 02/24/16) Reconcile Medications Atorvastatin Calcium (Lipitor) 40 MG TABLET 1 TAB PO DAILY CHOLESTEROL ( Reported) Buspirone HCl 10 MG TABLET 30 MG PO BID DEPRESSION (Reported) Carisoprodol (SOMA) 350 MG TABLET 350 MG PO 4XDAILY MUSCLE RELAXER (Reported) Dibucaine 1 % OINT...G. 1 JONELLE TOP Q6P PRN skin pain Diclofenac Sodium 75 MG TABLET.DR 1 TAB PO BID PRN PAIN Duloxetine HCl (Cymbalta) 60 MG CAPSULE.DR 1 CAP PO DAILY DEPRESSION Fluconazole 200 MG TABLET 1 TAB PO DAILY intertrigo Take for only 1 more day. Gabapentin 600 MG TABLET 1 TAB PO 6XDAILY NERVE PAIN (Reported) Haloperidol 2 MG TABLET 1 TAB PO QPM ANXIETY/AGITATION . Hydrocortisone 10 MG TABLET 0 PO DAILY ADRENAL INSUFFICIENCY TAKE 2 TABS IN THE MORNING BEFORE BREAKFAST AND 1 TAB IN THE EVENING. . Levothyroxine Sodium (Synthroid) 175 MCG TABLET 1 TAB PO DAILY AC HYPOTHYROID . Melatonin 10 MG TABLET 1 TAB PO QHS SUPPLEMENT (Reported) Metformin HCl (Metformin HCl ER) 500 MG TAB.ER.24 1 TAB PO BID DM (Reported) Metoprolol Tartrate 50 MG TABLET 1 TAB PO BID HEART/BP (Reported) Morphine Sulfate (Morphine Sulfate ER) 15 MG TABLET.ER 1 TAB PO Q8 PAIN CONTROL (Reported) Nystatin 100,000 UNIT/GRAM CREAM..G. 1 JONELLE TOP TID intertrigo apply to affected area(s) Omeprazole 40 MG CAPSULE.DR 1 CAP PO DAILY GI (Reported) Oxycodone HCl 10 MG TABLET 1 TAB PO Q6-PRN PRN pain (Reported) Oxycodone HCl/Acetaminophen (Oxycodone-Acetaminophen 5-325) 5 MG-325 MG TABLET 1 TAB PO Q6PRN PRN breakthrough pain Pregabalin (Lyrica) 100 MG CAPSULE 1 CAP PO BID NERVE PAIN (Reported) Ramelteon (Rozerem) 8 MG TABLET 1 TAB PO QPM SLEEP . Triage Note: PT TO ED WITH C/O COUGH, CONGESTION, TEMP 100.1, THIS AM 99.0, HX PNEUMONIA IN FE "FEELS JUST LIKE THAT". O2 SATS IN TRIAGE 91-93% Triage Nurses Notes Reviewed? yes Onset: Abrupt Duration: day(s):, constant Timing: recent history Severity: moderate, severe HPI: 53-year-old female comes into emergency room with complaints of chest tightness shortness of breath and coughing fever chills body aches. Symptoms been going on for the past couple days getting progressively worse. Short of breath with any exertion. She comes in for further evaluation. (Yeyo Moreno) General Stated Complaint: NON PRODUCTIVE COUGH, CONGESTION, FEVER, X 1 DA (Mila KINCAID,Murray Narayanan) Past History Travel History Traveled to [place] past 21 day No Medical History Any Pertinent Medical History? 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 No (Yeyo Moreno) Review of Systems Review of Systems Constitutional: Reports: see HPI. EENTM: Reports: see HPI. Respiratory: Reports: see HPI. Cardiovascular: Reports: no symptoms. GI: Reports: no symptoms. Genitourinary: Reports: no symptoms. Musculoskeletal: Reports: no symptoms. Skin: Reports: no symptoms. Neurological/Psychological: Reports: no symptoms. Hematologic/Endocrine: Reports: no symptoms. Immunologic/Allergic: Reports: no symptoms. All Other Systems: Reviewed and Negative (Yeyo Moreno) Physical Exam Physical Exam General Appearance: well developed/nourished, alert, awake, mild distress Head: atraumatic Eyes: Bilateral: normal appearance. Ears, Nose, Throat: normal ENT inspection, hearing grossly normal Neck: normal inspection Respiratory: no respiratory distress, decreased breath sounds Cardiovascular: regular rate/rhythm Gastrointestinal: soft Extremities: normal inspection Neurologic/Psych: awake, alert, oriented x 3 Skin: intact, normal color Core Measures ACS in differential dx? No CVA/TIA Diagnosis No Sepsis Present: No Sepsis Focused Exam Completed? No (Yeyo Moreno) Progress Differential Diagnosis: asthma, AMI, bronchitis, costochondritis, CHF, COPD, musculoskeletal pain, pericarditis, pulmonary embolism, pneumonia, pneumothorax, rib fracture, unstable angina Plan of Care: Orders Procedure Date/time Status Regular Diet 02/25 D Active Consistent Carbohydrate 1 02/25 D Active Misc Message 02/25 1412 Active ED Holding Orders 02/25 1412 Active Admit to inpatient 02/25 1412 Active Vital Signs 02/25 1412 Active Code Status 02/25 1412 Active Patient Data 02/25 1406 Active BLOOD CULTURE 02/25 1212 Active BLOOD CULTURE 02/25 1203 Active BLOOD CULTURE 02/25 1151 Active TROPONIN LEVEL 02/25 1111 Complete LACTIC ACID 02/25 1111 Complete COMPREHENSIVE METABOLIC PANEL 02/25 1111 Complete CBC WITHOUT DIFFERENTIAL 02/25 1111 Complete EKG 02/25 1111 Active Laboratory Tests 02/25/18 1411: Lactic Acid Cancelled 02/25/18 1140: Anion Gap 10, Estimated GFR > 60, BUN/Creatinine Ratio 10.0, Glucose 161 H, Lactic Acid 1.3, Calcium 8.8, Total Bilirubin 0.4, AST 14, ALT 19, Alkaline Phosphatase 72, Troponin I < 0.01, Total Protein 6.2 L, Albumin 3.5, Globulin 2.7, Albumin/Globulin Ratio 1.3, CBC w Diff NO MAN DIFF REQ, RBC 4.37, MCV 73.1 L, MCH 23.3 L, MCHC 31.9 L, RDW 19.2 H, MPV 8.3, Gran % 82.2 H, Lymphocytes % 5.4 L, Monocytes % 12.2 H, Eosinophils % 0.2, Basophils % 0, Absolute Granulocytes 10.4 H, Absolute Lymphocytes 0.7 L, Absolute Monocytes 1.5 H, Absolute Eosinophils 0, Absolute Basophils 0 Microbiology 02/25 1212 BLOOD: Blood Culture - ORD 02/25 1212 BLOOD: Blood Culture - ORD 02/25 1203 BLOOD: Blood Culture - RECD 02/25 1151 BLOOD: Blood Culture - RECD 02/25 1140 BLOOD: Blood Culture - CAN Cancelled: Quantity not sufficient for Aerobic blood culture bottle. 02/25 1128 BLOOD: Blood Culture - CAN Cancelled: Quantity not sufficient for Aerobic blood culture bottle. Diagnostic Imaging: Viewed by Me: Radiology Read. Discussed w/RAD: Radiology Read. Initial ED EKG: normal sinus rhythm, rate (75) Comments: PATIENT: TOSHA RAMESH PRESENT AGE: 53 PATIENT ACCOUNT NO: [id number] : 63 LOCATION: [facility] ORDERING PHYSICIAN: Yeyo PRIEST SERVICE DATE: 02/25/18 EXAM TYPE: RAD - XRY-CHEST XRAY, TWO VIEWS EXAMINATION: XR CHEST CLINICAL INFORMATION: Shortness of breath and cough. Congestion and fever. Evaluate for pneumonia. COMPARISON: 08/11/2017 TECHNIQUE: Chest, 2 views FINDINGS: Lungs are well expanded. Peribronchial interstitial thickening in both lungs is new compared to 08/11/2017. Also, there are some new patchy airspace opacities in bilateral lower lung zones. Cardiac silhouette is normal in size. The hilar contours are normal. Trachea is midline position. The visualized bones are intact. IMPRESSION: Abnormal chest. Findings are consistent with inflammation/infection of airways and pneumonia. No pleural effusion. DICTATED BY: Flaco Trinidad MD DATE/TIME DICTATED:02/25/181038 HORTICULTURE WORKER:LISA DATE/TIME TRANSCRIBED:02/25/181038 CONFIDENTIAL, DO NOT COPY WITHOUT APPROPRIATE AUTHORIZATION. <Electronically signed in Other Vendor System> SIGNED BY: Flaco Trinidad MD 02/25/18 1045 (Yeyo Moreno) Departure Departure Disposition: STILL A PATIENT Condition: Stable Clinical Impression Primary Impression: Bilateral pneumonia Secondary Impressions: Hyponatremia, Hypoxia Referrals: Krysta Currie MD (PCP/Family) Departure Forms: Customer Survey General Discharge Information Admission Note Spoke With: Slade KINCAID,Jessica Documentation of Exam: Documentation of any treatments & extenuating circumstances including Concerns Regarding Discharge (functional status, medication knowledge or non-compliance, living conditions, etc.) that warrant an admission rather than observation: IV antibiotics. Supplemental oxygen. Repeat labs. Correction of sodium. Short of breath on exertion. Hypoxic on room air. (Yeyo Moreno) PA/TEACHER OF THE SIGHT IMPAIRED Co-Sign Statement Statement: ED Attending supervision documentation- [x] I saw and evaluated the patient. I have also reviewed all the pertinent lab results and diagnostic results. I agree with the findings and the plan of care as documented in the PA's/TEACHER OF THE SIGHT IMPAIRED's documentation. Patient presents for evaluation of fever cough and shortness of breath. Physical examination reveals diminished breath sounds bilaterally but otherwise no acute respiratory distress. [] I have reviewed the ED Record and agree with the PA's/TEACHER OF THE SIGHT IMPAIRED's documentation. [] Additions or exceptions (if any) to the PAs/TEACHER OF THE SIGHT IMPAIRED's note and plan are summarized below: [] (Mila KINCAID,Murray Narayanan) Critical Care Note Critical Care Note Critical Care Time: 30-74 min (35) (Yeyo Moreno)
[2018-02-25 12:03] LABS: ABSOLUTE BASOPHIL COUNT 0 /CUMM (0.0-0.2); ABSOLUTE EOSINOPHIL COUNT 0 /CUMM (0.0-0.7); ABSOLUTE GRANULOCYTE CT 10.4 /CUMM (1.4-6.5); ABSOLUTE LYMPH COUNT 0.7 /CUMM (1.2-3.4); ABSOLUTE MONOCYTE COUNT 1.5 /CUMM (0.10-0.60); BASOPHIL % 0 % (0.0-2.0); EOSINOPHIL % 0.2 % (0-5); GRANULOCYTE % 82.2 % (42.2-75.2); HEMATOCRIT 31.9 % (37-47); MEAN CORPUSCULAR HGB 23.3 PG (27.0-31.0); MEAN CORPUSCULAR HGB CONC 31.9 G/DL (33.0-37.0); MEAN CORPUSCULAR VOLUME 73.1 FL (81.0-99.0); MEAN PLATELET VOLUME 8.3 FL (7.4-10.4); PLATELET COUNT 212 /CUMM (130-400); RBC DISTRIBUTION WIDTH 19.2 % (11.5-14.5); RED BLOOD CELL CT 4.37 /CUMM (4.20-5.40); WHITE BLOOD CELL COUNT 12.6 /CUMM (4.8-10.8)
--- NOTE | 2018-02-25 14:19 | History & Physical ---
Matt KINCAID,[facility] 02/25/18 1419: General Information and HPI MD Statement: I have seen and personally examined TOSHA RAMESH and documented this H&P. The patient is a 53 year old F who presented with a patient stated chief complaint of [chest tightness]. Source of Information: patient Exam Limitations: no limitations History of Present Illness: 53-year-old female with past medical history of chronic pain, diabetes mellitus, fibromyalgia, VALERIE, hypothyroidism, depression, anxiety, PVD, GERD, hyperlipidemia, hypertension who presents with complaints of cough, difficulty in breathing with fever and myalgia. Patient was in usual state of health until 2 days ago following which she developed cough with greenish sputum production associated with 3 x 10 chest pain with radiating to her back. She also had chest tightness on and off. She endorses that her symptoms have gotten worse and hence decided to come to [facility]. At baseline patient doesn't use any oxygen at home. Patient also had difficulty in breathing with fever MAXIMUM TEMPERATURE 101 [patient took Advil 800 mg twice yesterday.] Associated with chills and headache. Her daughter is sick at home with common cold. She denies any recent travel. She denies nausea, vomiting, diarrhea, weakness, dizziness. Patient is active smoker uses 10-12 cigarettes per day. Denies alcohol use. Patient has extensive surgical history for endometriosis and back pain. Patient was seen by Dr. Morrell in the past for evaluation of COPD but patient never followed up with her. Allergies/Medications Allergies: Coded Allergies: Penicillins (HIVES, RASH 02/24/16) hydromorphone (GI UPSET 02/24/16) Home Med list Atorvastatin Calcium (Lipitor) 40 MG TABLET 1 TAB PO DAILY CHOLESTEROL ( Reported) Baclofen 10 MG TABLET 1 TAB PO TID MUSCLE SPASMS (Reported) Buspirone HCl 15 MG TABLET 1 TAB PO TID ANXIETY/DEPRESSION (Reported) Divalproex Sodium (Depakote ER) 500 MG TAB.ER.24H 2 TAB PO QHS MENTAL HEALTH (Reported) Divalproex Sodium (Depakote ER) 250 MG TAB.ER.24H 2 TAB PO QHS MENTAL HEALTH (Reported) Gabapentin 600 MG TABLET 1 TAB PO 6XDAILY NERVE PAIN (Reported) Hydrocortisone (Cortef) 5 MG TABLET 4 TAB PO QAM ADRENAL INSUFFICIENCY ( Reported) Hydrocortisone (Cortef) 5 MG TABLET 1 TAB PO QPM ADRENAL INSUFFICIENCY ( Reported) Levothyroxine Sodium (Synthroid) 175 MCG TABLET 1 TAB PO DAILY AC HYPOTHYROID . Metformin HCl (Metformin HCl ER) 500 MG TAB.ER.24 1 TAB PO BID DM (Reported) Metoprolol Tartrate 50 MG TABLET 1 TAB PO BID HEART/BP (Reported) Morphine Sulfate (Morphine Sulfate ER) 15 MG TABLET.ER 1 TAB PO TID PAIN ( Reported) Omeprazole 40 MG CAPSULE.DR 1 CAP PO DAILY GI (Reported) Oxycodone HCl 10 MG TABLET 1 TAB PO Q6H PAIN (Reported) Perphenazine 4 MG TABLET 1 TAB PO QHS MENTAL HEALTH (Reported) Perphenazine/Amitriptyline HCl (Perphen-Amitrip 4 MG-10 MG Tab) 4 MG-10 MG TABLET 1 TAB PO TID MENTAL HEALTH (Reported) Pregabalin (Lyrica) 100 MG CAPSULE 1 CAP PO BID NERVE PAIN (Reported) Ramelteon (Rozerem) 8 MG TABLET 1 TAB PO QPM SLEEP . Compliance With Home Meds: GOOD Past History Travel History Traveled to [place] past 21 day No Medical History Neurological: restless leg syndrome EENT: NONE Cardiovascular: hypertension, hyperlipidemia, PVD Respiratory: obstructive sleep apnea, pneumonia Gastrointestinal: GERD Hepatic: NONE Renal: NONE Musculoskeletal: fibromyalgia, CHRONIC BACK PROBLEMS Psychiatric: anxiety, depression, opioid dependence, on prescribed by pain management for chronic back pain--morphine sulfate and oxycodone Endocrine: diabetes, hypothyroidism, currently not taking her Synthroid with elevated TSH and low free T4 Blood Disorders: NONE Cancer(s): NONE 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 BROTHER (Lung cancer). Psychosocial History Where do you live? Home Who Do You Live With? spouse, child Services at Home: None Primary Language: Albanian Smoking Status: Current Everyday Smoker ETOH Use: denies use Illicit Drug Use: denies illicit drug use Functional Ability ADLs Independent: dressing, eating, toileting, bathing. Ambulation: independent IADLs Independent: shopping, housework, finances, food prep, telephone, transportation , medication admin. Review of Systems Review of Systems Constitutional: Reports: no symptoms. Cardiovascular: Reports: no symptoms. Respiratory: Reports: no symptoms. GI: Reports: no symptoms. Genitourinary: Reports: no symptoms. Musculoskeletal: Reports: no symptoms. Exam & Diagnostic Data Last 24 Hrs of Vital Signs/I&O Vital Signs Date Time Temp Pulse Resp B/P B/P Pulse O2 O2 Flow FiO2 Mean Ox Delivery Rate 02/25 1708 98.2 71 20 142/80 95 Nasal 2.0L Cannula 02/25 1705 Nasal 2.0L Cannula 02/25 1631 97.9 86 20 112/66 96 Room Air 02/25 1528 74 20 106/66 97 Room Air 02/25 1251 96.1 71 20 100/59 88 02/25 1008 97.6 98 18 148/94 93 Room Air Room Air Intake & Output 02/25 1600 02/25 0800 02/25 0000 Intake Total Output Total Balance Patient 245 lb Weight Weight Reported by Patient Measurement Method Physical Exam General Appearance Alert, Oriented X3, Cooperative, No Acute Distress Cardiovascular Regular Rate, Normal S1, Normal S2, No Murmurs Lungs bilateral wheeze more on the right side Abdomen Soft, No Tenderness, No Hepatospenomegaly Neurological Normal Speech, Strength at 5/5 X4 Ext, Normal Tone, Sensation Intact Last 24 Hrs of Labs/Asaf: Laboratory Tests 02/25/18 1411: Lactic Acid Cancelled 02/25/18 1140: Anion Gap 10, Estimated GFR > 60, BUN/Creatinine Ratio 10.0, Glucose 161 H, Lactic Acid 1.3, Calcium 8.8, Total Bilirubin 0.4, AST 14, ALT 19, Alkaline Phosphatase 72, Troponin I < 0.01, Total Protein 6.2 L, Albumin 3.5, Globulin 2.7, Albumin/Globulin Ratio 1.3, CBC w Diff NO MAN DIFF REQ, RBC 4.37, MCV 73.1 L, MCH 23.3 L, MCHC 31.9 L, RDW 19.2 H, MPV 8.3, Gran % 82.2 H, Lymphocytes % 5.4 L, Monocytes % 12.2 H, Eosinophils % 0.2, Basophils % 0, Absolute Granulocytes 10.4 H, Absolute Lymphocytes 0.7 L, Absolute Monocytes 1.5 H, Absolute Eosinophils 0, Absolute Basophils 0 Microbiology 02/25 1212 BLOOD: Blood Culture - CAN Cancelled: DUPLICATE 02/25 1212 BLOOD: Blood Culture - CAN Cancelled: DUPLICATE 02/25 1203 BLOOD: Blood Culture - RECD 02/25 1151 BLOOD: Blood Culture - RECD 02/25 1140 BLOOD: Blood Culture - CAN Cancelled: Quantity not sufficient for Aerobic blood culture bottle. 02/25 1128 BLOOD: Blood Culture - CAN Cancelled: Quantity not sufficient for Aerobic blood culture bottle. Diagnostic Data EKG Results Sinus rhythm CXR Results Abnormal chest. Findings are consistent with inflammation/infection apparent reason pneumonia and no pleural effusion. There is peribronchial interstitial thickening in both lungs which is new compared to 08/11/2017. Assessment/Plan Assessment: 53-year-old female with past medical history of chronic pain, diabetes mellitus, fibromyalgia, VALERIE, hypothyroidism, depression, anxiety, PVD, GERD, hyperlipidemia, hypertension who presents with complaints of cough, difficulty in breathing with fever and myalgia. Patient admitted to [facility] for further evaluation and management. Admission vitals Temperature 96.1, pulse 71, respiratory rate 20, blood pressure 100/59, saturating 93 on room air Admission labs W BC 12.6 with 82.2 granulocytes and no bands, hemoglobin 10.2/31.9, platelet count 212, sodium 127, BUN 6, creatinine 0.6, potassium 4, glucose 161, alkaline phosphatase 72 troponin 0.01. Pending Blood culture Chest x-ray Abnormal chest. Findings are consistent with inflammation/infection apparent reason pneumonia and no pleural effusion. There is peribronchial interstitial thickening in both lungs which is new compared to 08/11/2017. ED treatment Albuterol and ipratropium inhalation, ceftriaxone, azithromycin, morphine 4 mg once, normal saline bolus 1 L Assessment and plan 1. Community-acquired pneumonia 2. Hyponatremia 3. Adrenal insufficiency 4. Diabetes * Admitted in [facility] * Continue IV ceftriaxone and azithromycin * IV Solu-Medrol 40 twice a day. We will hold hydrocortisone for now. * Sputum culture, blood culture, urine for strep antigen, Legionella antigen * Nicotine patch for nicotine addiction * Accu-Chek and sliding scale NovoLog insulin. * Hyponatremia follow-up BEP * Patient is on 2 L of oxygen. Taper it slowly as tolerated. Diet-diabetic diet Code-full code As Ranked By This Provider Problem List: 1. Hyponatremia 2. Bilateral pneumonia Core Measures/Misc (07/03) Acute Coronary Syndrome ACS Diagnosis: No Congestive Heart Failure Congestive Heart Failure Diagnosis No Cerebrovascular Accident CVA/TIA Diagnosis: No VTE (View Protocol) VTE Risk Factors Age>40 No Mechanical VTE Prophylaxis d/t Other No VTE Pharm Prophylaxis d/t Other Sepsis (View protocol) Sepsis Present: No Gladys Rojas MD 02/25/18 1610: Resident Review Statement Resident Statement: examined this patient, discussed with internal medicine physician assistant, agreed with internal medicine physician assistant Other Findings: 53-year-old female with past medical history of chronic pain, type 2 diabetes, fibromyalgia, smoker, hypothyroidism, depression and anxiety, PVD, adrenal insufficiency, GERD, hypertension, who presents with chest tightness, shortness of breath, nonproductive cough, generalized body aches, fever and chills with a T-max of 101 at home yesterday for the past 2 days. No known history of asthma or COPD, however patient has had recurrent pneumonia and was referred to pulmonology but refused to go because she was afraid of the pulmonary testing. Assessment 1. Community-acquired pneumonia 2. Chronic hyponatremia 3. History of adrenal insufficiency 4. Possible COPD 5. Current smoker Plan -Admit to general medicine floor -Continue IV ceftriaxone and azithromycin -TRC nebs and oxygen as needed -IV Solu-Medrol 40 mg twice daily -Hold hydrocortisone while on Solu-Medrol -Sputum culture; blood cultures 2 -Check strep pneumo and Legionella antigen -Resume her important home medications -Hold oral hypoglycemics; start NovoLog sliding scale and check fingersticks 3 times daily before meals and at bedtime -Repeat labs in a.m. -Nicotine patch -Vitals every shift -Subcu Lovenox for DVT prophylaxis -Heart healthy diet -She is full code Slade KINCAID,Jessica 02/25/18 1652: Attending MD Review Statement Attending Statement Attending MD Statement: examined this patient, discuss w/resident/PA/PIPE STRESS ENGINEER, agreed w/resident/PA/PIPE STRESS ENGINEER, reviewed EMR data (avail), discussed with nursing, discussed with case mgmt, reviewed images, amended to note Attending Assessment/Plan: 53-year-old female with past medical history significant for hypertension, hyperlipidemia, VALERIE, peripheral restaurant disease, GERD, adrenal insufficiency on chronic steroids, hypothyroidism, empty sella, depression, chronic pain who is presenting with cough congestion and fever. Patient also had some shortness of breath. She said that she has been having mild cold symptoms from last few days and left-sided got worse. She wasn't able to sleep last night secondary to feeling congested and having trouble breathing. She also had a fever of 101F. In the emergency room she presented and chest x-ray showed possibility of pneumonia. Patient also has leukocytosis. She had a recent bout of pneumonia in November 2017 where she was admitted to [facility]. Vital Signs Date Time Temp Pulse Resp B/P B/P Pulse O2 O2 Flow FiO2 Mean Ox Delivery Rate 02/25 1631 97.9 86 20 112/66 96 Room Air 02/25 1528 74 20 106/66 97 Room Air 02/25 1251 96.1 71 20 100/59 88 02/25 1008 97.6 98 18 148/94 93 Room Air Room Air on exam; aox3, nad. cv; s1,s2, rrr resp; junky breath sounds at bilateral axillary wheezing. abd; soft, nt, bs+ ext; trace edema Laboratory Tests 02/25 02/25 1411 1140 Chemistry Sodium (137 - 145 mmol/L) 127 L Potassium (3.5 - 5.1 mmol/L) 4.0 Chloride (98 - 107 mmol/L) 89 L Carbon Dioxide (22 - 30 mmol/L) 29 Anion Gap (5 - 16) 10 BUN (7 - 17 mg/dL) 6 L Creatinine (0.5 - 1.0 mg/dL) 0.6 Estimated GFR (>60 ml/min) > 60 BUN/Creatinine Ratio (7 - 25 %) 10.0 Glucose (65 - 99 mg/dL) 161 H Lactic Acid (0.7 - 2.1 mmol/L) Cancelled 1.3 Calcium (8.4 - 10.2 mg/dL) 8.8 Total Bilirubin (0.2 - 1.3 mg/dL) 0.4 AST (14 - 36 U/L) 14 ALT (9 - 52 U/L) 19 Alkaline Phosphatase (<127 U/L) 72 Troponin I (< 0.11 ng/ml) < 0.01 Total Protein (6.3 - 8.2 g/dL) 6.2 L Albumin (3.5 - 5.0 g/dL) 3.5 Globulin (1.9 - 4.2 gm/dL) 2.7 Albumin/Globulin Ratio (1.1 - 2.2 %) 1.3 Hematology CBC w Diff NO MAN DIFF REQ WBC (4.8 - 10.8 /CUMM) 12.6 H RBC (4.20 - 5.40 /CUMM) 4.37 Hgb (12.0 - 16.0 G/DL) 10.2 L Hct (37 - 47 %) 31.9 L MCV (81.0 - 99.0 FL) 73.1 L MCH (27.0 - 31.0 PG) 23.3 L MCHC (33.0 - 37.0 G/DL) 31.9 L RDW (11.5 - 14.5 %) 19.2 H Plt Count (130 - 400 /CUMM) 212 MPV (7.4 - 10.4 FL) 8.3 Gran % (42.2 - 75.2 %) 82.2 H Lymphocytes % (20.5 - 51.1 %) 5.4 L Monocytes % (1.7 - 9.3 %) 12.2 H Eosinophils % (0 - 5 %) 0.2 Basophils % (0.0 - 2.0 %) 0 Absolute Granulocytes (1.4 - 6.5 /CUMM) 10.4 H Absolute Lymphocytes (1.2 - 3.4 /CUMM) 0.7 L Absolute Monocytes (0.10 - 0.60 /CUMM) 1.5 H Absolute Eosinophils (0.0 - 0.7 /CUMM) 0 Absolute Basophils (0.0 - 0.2 /CUMM) 0 CXR: IMPRESSION: Abnormal chest. Findings are consistent with inflammation/infection of airways and pneumonia. No pleural effusion. A/P: 53-year-old female with past medical history significant for hypertension, hyperlipidemia, VALERIE, peripheral restaurant disease, GERD, adrenal insufficiency on chronic steroids, hypothyroidism, empty sella, depression, chronic pain admitted with PNA. Patient admitted to medicine floor. We'll obtain sputum culture, urine Legionella antigen and strep antigen. We'll treat the patient with IV antibiotics. She should also receive IV steroids as she is wheezing. She does take chronic hydrocortisone therefore that should be stopped and she should be getting IV Solu-Medrol. TRC nebs and oxygen. We'll try to taper her oxygen. Please check Accu-Cheks with sliding scale insulin with a history of diabetes. Please continue the rest of her home medications. Pharmacologic DVT prophylaxis and patient is a full code.
[2018-02-25] MEDS ORDERED: CORTEF5 M1 PO ×2 (16:09)
[2018-02-25] MEDS ORDERED: BUSPIRONE HCL15 M1 PO (16:11)
[2018-02-25] MEDS ORDERED: MORPHINE SULFAT15 M3 PO (16:12)
[2018-02-25] MEDS ORDERED: ZOHYDRO ER10 M1 PO (16:15)
[2018-02-25] MEDS ORDERED: DEPAKOTE ER500 M1 PO (16:17)
[2018-02-25] MEDS ORDERED: DEPAKOTE ER250 M1 PO (16:18)
[2018-02-25] MEDS ORDERED: PERPHENAZINE4 M1 PO (16:18)
[2018-02-25] MEDS ORDERED: PERPHEN-AMITRI1 EAC1 PO (16:19)
[2018-02-25] MEDS ORDERED: BACLOFEN10 M1 PO (16:19)
[2018-02-25] MEDS ORDERED: OXYCODONE HCL10 M2 PO (16:22)
[2018-02-25 17:08] VITALS: BP 142/80
[2018-02-25 22:08] VITALS: BP 122/70
--- NOTE | 2018-02-26 06:12 | PN- Housestaff ---
Matt KINCAID,Diamond 02/26/18 0611: Subjective Follow-up For: Community-acquired pneumonia Complaints: no complaints Subjective: Patient seen and examined at bedside. No overnight events. Patient says she feels better. She denies shortness of breath, nausea, vomiting, chest pain. Review of Systems Constitutional: Reports: no symptoms, see HPI. Objective Last 24 Hrs of Vital Signs/I&O Vital Signs Date Time Temp Pulse Resp B/P B/P Pulse O2 O2 Flow FiO2 Mean Ox Delivery Rate 02/26 0904 97.8 76 20 146/90 02/26 0800 Nasal 2.0L Cannula 02/26 0638 97.8 76 20 146/90 96 Nasal 1.5L Cannula 02/26 0000 Nasal 2.0L Cannula 02/25 2208 98.0 66 20 122/70 96 02/25 2137 Nasal 2.0L Cannula 02/25 2057 70 20 122/70 02/25 1708 98.2 71 20 142/80 95 Nasal 2.0L Cannula 02/25 1705 Nasal 2.0L Cannula 02/25 1631 97.9 86 20 112/66 96 Room Air 02/25 1528 74 20 106/66 97 Room Air 02/25 1251 96.1 71 20 100/59 88 Intake & Output 02/26 1600 02/26 0800 02/26 0000 Intake Total 1360 860 Output Total Balance 1360 860 Intake, IV 1000 500 Intake, Oral 360 360 Patient 245 lb Weight Weight Reported by Patient Measurement Method Physical Exam General Appearance: Alert, Oriented X3, Cooperative, No Acute Distress Cardiovascular: Regular Rate, Normal S1, Normal S2, No Murmurs Lungs: bilateral wheeze Abdomen: Soft, No Tenderness, No Hepatospenomegaly Neurological: Normal Speech, Strength at 5/5 X4 Ext, Normal Tone, Sensation Intact, Cranial Nerves 3-12 NL Extremities: No Cyanosis, No Edema, Normal Pulses Current Medications: Current Medications Sig/Alden Start time Last Medication Dose Route Stop Time Status Admin Acetaminophen 650 MG Q6P PRN 02/25 1500 AC PO Albuterol Sulfate 3 ML BID 02/26 09 AC 02/26 INH 0842 Amitriptyline HCl 10 MG 4 TIMES/DAY 02/25 2100 AC 02/26 PO 0903 Atorvastatin Calcium 40 MG DAILY 02/26 900 AC 02/26 PO 0904 Azithromycin 500 MG Q24H 02/26 1230 AC Sodium Chloride 250 ML IV Baclofen 10 MG TID 02/25 1719 AC 02/26 PO 0903 Buspirone HCl 15 MG TID 02/25 2100 AC 02/26 PO 0903 Ceftriaxone Sodium 1,000 MG Q24H 02/26 1200 AC IV Divalproex Sodium 500 MG AT BEDTIME 02/25 2100 DC PO Divalproex Sodium 500 MG AT BEDTIME 02/25 2100 AC 02/25 PO 2055 Divalproex Sodium 250 MG AT BEDTIME 02/25 2100 AC 02/25 PO 2055 Enoxaparin Sodium 0 .STK-MED ONE 02/25 1637 DC SC Enoxaparin Sodium 40 MG DAILY 02/25 1454 AC 02/26 SC 0904 Gabapentin 600 MG Q4 02/25 1800 AC 02/26 PO 0905 Guaifenesin 10 ML Q6P PRN 02/25 2115 AC PO Insulin Aspart 0 TIDAC 02/25 1700 AC 02/26 SC 0902 Levothyroxine Sodium 0.175 MG DAILY AC 02/26 0700 AC 02/26 PO 0555 Methylprednisolone 40 MG Q12 02/25 2100 AC 02/26 IV 0904 Metoprolol Tartrate 50 MG BID 02/25 2100 AC 02/26 PO 0904 Morphine Sulfate 15 MG Q8 02/25 2200 AC 02/26 PO 0554 Nicotine 14 MG DAILY 02/26 0900 AC 02/26 TOP 0904 Omeprazole 40 MG DAILY AC 02/26 0700 AC 02/26 PO 0554 Oxycodone HCl 10 MG Q6 PRN 02/25 1800 AC 02/26 PO 0656 Oxycodone HCl 10 MG Q6 PRN 02/25 1730 DC 02/25 PO 1731 Perphenazine 4 MG AT BEDTIME 02/25 2100 CAN PO Perphenazine 4 MG 4 TIMES/DAY 02/25 2100 AC 02/26 PO 0905 Pregabalin 100 MG BID 02/25 2100 AC 02/26 PO 0915 Ramelteon 8 MG QPM 02/25 2100 AC 02/25 PO 205 Sodium Chloride 1,000 ML .Q10H 02/25 1500 AC 02/26 IV 0921 Sodium Chloride 1,000 ML BOLUS ONE 02/25 1300 DC 02/25 IV 02/25 1359 1344 Sodium Chloride 1,000 ML BOLUS ONE 02/25 1300 DC 02/25 IV 02/25 1359 1300 Last 24 Hrs of Lab/Asaf Results Last 24 Hrs of Labs/Mics: Laboratory Tests 02/26/18 0700: Anion Gap 9, Estimated GFR > 60, BUN/Creatinine Ratio 15.0, CBC w Diff MAN DIFF ORDERED, RBC 3.91 L, MCV 74.6 L, MCH 23.4 L, MCHC 31.3 L, RDW 19.9 H, MPV 8.9, Gran % 89.7 H, Lymphocytes % 3.8 L, Monocytes % 6.5, Eosinophils % 0, Basophils % 0, Absolute Granulocytes 7.8 H, Absolute Lymphocytes 0.3 L, Absolute Monocytes 0.6, Absolute Eosinophils 0, Absolute Basophils 0, Platelet Estimate VERIFIED BY SMEAR, Polychromasia 1+, Hypochromic-Microcytic 1+, Poikilocytosis 1+, Anisocytosis 1+, Microcytic Cells 1+, Ovalocytes 1+, [place] Cells 1+ 02/25/18 1411: Lactic Acid Cancelled Microbiology 02/25 2105 URINE ROUT: Legionella Antigen - COLB 02/25 2105 URINE ROUT: Streptococcus pneumoniae Antigen (M - COLB 02/25 2105 LOWER RESP: Respiratory Culture - COLB 02/25 2105 LOWER RESP: Gram Stain - COLB Assessment/Plan Assessment: 53-year-old female with past medical history of chronic pain, diabetes mellitus, fibromyalgia, VALERIE, hypothyroidism, depression, anxiety, PVD, GERD, hyperlipidemia, hypertension who presents with complaints of cough, difficulty in breathing with fever and myalgia. Patient admitted to [facility] for further evaluation and management. Assessment and plan 1. Community-acquired pneumonia 2. Hyponatremia 3. Adrenal insufficiency 4. Diabetes * Continue IV ceftriaxone and azithromycin * IV Solu-Medrol 40 twice a day. We will hold hydrocortisone for now. We will change to by mouth prednisone tomorrow. * Sputum culture, blood culture, urine for strep antigen, Legionella antigen- pending * Nicotine patch for nicotine addiction * Accu-Chek and sliding scale NovoLog insulin. * Chronic Hyponatremia follow-up sodium today is 134. We'll follow-up with sodium tomorrow. * Patient is on room air Diet-diabetic diet Code-full code Problem List: 1. Bilateral pneumonia Pain Ratin Pain Location: none Pain Goal: Remain pain free Pain Plan: tylenol Tomorrow's Labs & Rationales: [email or web address] Slade KINCAID,Jessica 02/26/18 1327: Attending MD Review Statement Attending Statement Attending MD Statement: examined this patient, discuss w/resident/PA/FASTENER TECHNOLOGIST, agreed w/resident/PA/FASTENER TECHNOLOGIST, reviewed EMR data (avail), discussed with nursing, discussed with case mgmt, reviewed images, amended to note Attending Assessment/Plan: Patient seen and examined, overall doing better. Breathing has improved. Oxygen requirement has improved. On lung exam she still has bilateral extremity wheezing. Patient does mention that she is having some shaking secondary to nebulizer. She wanted to perphenazine as well as amitriptyline to be increased to 4 times a day. We'll follow-up on the culture results. Will continue IV antibiotics and IV steroids today and reevaluate in the morning. Continue TRC nebs. Pharmacology DVT prophylaxis. If patient continues to improve then likely she can be discharged home tomorrow on oral prednisone taper as well as oral antibiotics. Once she is down to a low dose of prednisone, she can be resumed back on her home dose of hydrocortisone.
[2018-02-26 06:38] VITALS: BP 146/90
[2018-02-26 10:27] LABS: ABSOLUTE BASOPHIL COUNT 0 /CUMM (0.0-0.2); ABSOLUTE EOSINOPHIL COUNT 0 /CUMM (0.0-0.7); ABSOLUTE GRANULOCYTE CT 7.8 /CUMM (1.4-6.5); ABSOLUTE LYMPH COUNT 0.3 /CUMM (1.2-3.4); ABSOLUTE MONOCYTE COUNT 0.6 /CUMM (0.10-0.60); BASOPHIL % 0 % (0.0-2.0); EOSINOPHIL % 0 % (0-5); GRANULOCYTE % 89.7 % (42.2-75.2); HEMATOCRIT 29.2 % (37-47); MEAN CORPUSCULAR HGB 23.4 PG (27.0-31.0); MEAN CORPUSCULAR HGB CONC 31.3 G/DL (33.0-37.0); MEAN CORPUSCULAR VOLUME 74.6 FL (81.0-99.0); MEAN PLATELET VOLUME 8.9 FL (7.4-10.4); PLATELET COUNT 177 /CUMM (130-400); RBC DISTRIBUTION WIDTH 19.9 % (11.5-14.5); RED BLOOD CELL CT 3.91 /CUMM (4.20-5.40); WHITE BLOOD CELL COUNT 8.7 /CUMM (4.8-10.8)
--- NOTE | 2018-02-26 12:48 | Discharge Summary ---
Visit Information Visit Dates Admission Date: 02/25/18 Discharge Date: 02/27/18 Hospital Course Course Attending Physician: Jessica June MD Primary Care Physician: Krysta Currie MD Hospital Course: 53-year-old female with past medical history of chronic pain, diabetes mellitus, fibromyalgia, VALERIE, hypothyroidism, depression, anxiety, PVD, GERD, hyperlipidemia, hypertension who presents with complaints of cough, difficulty in breathing with fever and myalgia. Patient was in usual state of health until 2 days ago following which she developed cough with greenish sputum production associated with 3 x 10 chest pain with radiating to her back. She also had chest tightness on and off. She endorses that her symptoms have gotten worse and hence decided to come to [facility]. At baseline patient doesn't use any oxygen at home. Patient also had difficulty in breathing with fever MAXIMUM TEMPERATURE 101 [patient took Advil 800 mg twice yesterday.] Associated with chills and headache. Her daughter is sick at home with common cold. She denies any recent travel. She denies nausea, vomiting, diarrhea, weakness, dizziness. Patient is active smoker uses 10-12 cigarettes per day. Denies alcohol use. Patient has extensive surgical history for endometriosis and back pain. Patient was seen by Dr. Madden in the past for evaluation of COPD but patient never followed up with her. Hospital Course 1. Community-acquired pneumonia 2. Hyponatremia 3. Adrenal insufficiency 4. Diabetes Patient treated for community-acquired pneumonia with IV antibiotics and switched to Ceftin and azithromycin with tapering dose of steroids. Patient's sputum blood culture-negative. During the hospital admission are adequate for dose was held. Patient will be sent home with tapering dose of steroids until she takes the 10 mg and then she can continue taking her hydrocortisone. Patient has chronic hyponatremia and her sodium upon discharge was 134. Patient 's ambulatory stat was 94%. During the hospital admission patient had high blood pressure of 200/110. Patient was given an extra dose of metoprolol. On repeat blood pressure was 170/90. Patient endorses that her blood pressure remains high during the time of anxiety. She was anxious to go home since her daughter was having exam. Patient said she will measure her blood pressure and maintain a log and follow up with her primary care physician. She will was advised to go to emergency room in case of high blood pressure, headache, weakness, dizziness, decreased sensation. Chest x-ray Abnormal chest. Findings are consistent with inflammation/infection of airways and pneumonia. No pleural effusion. Allergies: Coded Allergies: Penicillins (HIVES, RASH 02/24/16) hydromorphone (GI UPSET 02/24/16) Disposition Summary Disposition Principal Diagnosis: Community-acquired pneumonia Additional Diagnosis: Chronic hyponatremia Discharge Disposition: home or self care Discharge Instructions General Discharge Information Code Status: Full Code Patient's Diet: Diabetic diet Patient's Activity: As tolerated Follow-Up Instructions/Appts: Please follow-up with your primary care provider within 1-2 weeks of discharge. Medications at Discharge Discharge Medications: Continue taking these medications: Gabapentin (Gabapentin) 600 MG TABLET 1 Tablet ORAL 6XDAILY Qty = 270 Comments: Last Taken: 02/27/18 Time: 14:08 Metformin HCl (Metformin HCl ER) 500 MG TAB.ER.24 1 Tablet ORAL TWICE DAILY Comments: NOT GIVEN IN HOSPITAL Atorvastatin Calcium (Lipitor) 40 MG TABLET 1 Tablet ORAL DAILY Comments: Last Taken: 02/27/18 Time: 08:29 Omeprazole (Omeprazole) 40 MG CAPSULE.DR 1 Capsule ORAL DAILY Comments: Last Taken: 02/27/18 Time: 06:12 Metoprolol Tartrate (Metoprolol Tartrate) 50 MG TABLET 1 Tablet ORAL TWICE DAILY Qty = 180 Comments: Last Taken: 02/27/18 Time: 08:30 Pregabalin (Lyrica) 100 MG CAPSULE 1 Capsule ORAL TWICE DAILY Qty = 60 Comments: Last Taken: 02/27/18 Time: 08:30 Levothyroxine Sodium (Synthroid) 175 MCG TABLET 1 Tablet ORAL DAILY BEFORE BREAKFAST Qty = 30 Instructions: . Comments: Last Taken: 02/27/18 Time: 06:12 Ramelteon (Rozerem) 8 MG TABLET 1 Tablet ORAL Every night Qty = 30 Instructions: . Comments: Last Taken: 02/26/18 Time: 22:24 Hydrocortisone (Cortef) 5 MG TABLET 4 Tablet ORAL Every Morning Comments: NOT GIVEN IN THE HOSPTIAL Hydrocortisone (Cortef) 5 MG TABLET 1 Tablet ORAL Every night Comments: NOT GIVEN IN THE HOSPITAL. Buspirone HCl (Buspirone HCl) 15 MG TABLET 1 Tablet ORAL THREE TIMES DAILY Comments: Last Taken: 02/27/18 Time: 14:08 Morphine Sulfate (Morphine Sulfate ER) 15 MG TABLET.ER 1 Tablet ORAL THREE TIMES DAILY Comments: Last Taken: 02/27/18 Time: 14:08 Divalproex Sodium (Depakote ER) 500 MG TAB.ER.24H 2 Tablet ORAL TAKE AT BEDTIME Qty = 30 Comments: Last Taken: 02/26/18 Time: 20:24 Divalproex Sodium (Depakote ER) 250 MG TAB.ER.24H 2 Tablet ORAL TAKE AT BEDTIME Qty = 30 Comments: Last Taken: 02/26/18 Time: 20:2 Perphenazine (Perphenazine) 4 MG TABLET 1 Tablet ORAL TAKE AT BEDTIME Qty = 30 Comments: Last Taken: 02/27/18 Time: 12:10 Perphenazine/Amitriptyline HCl (Perphen-Amitrip 4 MG-10 MG Tab) 4 MG-10 MG TABLET 1 Tablet ORAL 4 TIMES A DAY Qty = 120 Comments: NOT GIVEN IN THE HOSPITAL Baclofen (Baclofen) 10 MG TABLET 1 Tablet ORAL THREE TIMES DAILY Comments: Last Taken: 02/27/18 Time: 14:08 Oxycodone HCl (Oxycodone HCl) 10 MG TABLET 1 Tablet ORAL Q6H Comments: Last Taken: 02/27/18 Time: 12:27 Start taking the following new medications: Prednisone (Prednisone) 10 MG TABLET 1 Tablet ORAL DAILY Qty = 18 No Refills Instructions: ... Comments: please take 3 tab on February 28-March 02 Please take 2 tab on March 03-March 05 Please take 1 tab on March 06-March 08 please start taking your regular hydrocortisone After you finish a prednisone taper Azithromycin (Azithromycin) 500 MG TABLET 1 Tablet ORAL DAILY Qty = 2 No Refills Instructions: . Comments: PT RECIEVED ONLY IV IN HOSPITAL Cefuroxime Axetil (Cefuroxime) 500 MG TABLET 1 Tablet ORAL TWICE DAILY Qty = 10 No Refills Instructions: . Comments: PT ONLY RECIEVED IV IN THE HOSPITAL Copies To: Krysta Currie MD
[2018-02-26 14:27] VITALS: BP 142/80
[2018-02-26 22:05] VITALS: BP 160/80
[2018-02-27 06:03] VITALS: BP 200/110
--- NOTE | 2018-02-27 07:33 | PN- Housestaff ---
Subjective Follow-up For: Community-acquired pneumonia Subjective: Patient seen and examined at bedside. No overnight events. Patient is anxious to go home today. Her blood pressure is high today which the patient aware, but still wants to go home. Denies shortness of breath, fever, chills. Review of Systems Constitutional: Reports: no symptoms, see HPI. Objective Last 24 Hrs of Vital Signs/I&O Vital Signs Date Time Temp Pulse Resp B/P B/P Pulse O2 O2 Flow FiO2 Mean Ox Delivery Rate 02/27 1012 178/92 02/27 0948 95 Room Air 02/27 0830 81 198/112 02/27 0800 Room Air 02/27 0614 200/110 02/27 0603 97.4 68 20 200/110 96 Room Air 02/26 2205 97.9 73 20 160/80 95 02/26 2024 88 142/64 02/26 1823 97 Room Air 02/26 1427 97.8 80 17 142/80 96 Room Air Intake & Output 02/27 1600 02/27 0800 02/27 0000 Intake Total 1100 300 Output Total Balance 1100 300 Intake, IV 800 Intake, Oral 300 300 Physical Exam General Appearance: Alert, Oriented X3, Cooperative, No Acute Distress Cardiovascular: Regular Rate, Normal S1, Normal S2, No Murmurs Lungs: bilateral wheeze Abdomen: Soft, No Tenderness, No Hepatospenomegaly Neurological: Normal Speech, Strength at 5/5 X4 Ext, Normal Tone, Sensation Intact Extremities: No Cyanosis, No Edema, Normal Pulses Current Medications: Current Medications Sig/Alden Start time Last Medication Dose Route Stop Time Status Admin Acetaminophen 650 MG Q6P PRN 02/25 1500 AC PO Albuterol Sulfate 3 ML BID 02/26 09 AC 02/27 INH 0946 Amitriptyline HCl 10 MG 4 TIMES/DAY 02/25 2100 AC 02/27 PO 1210 Atorvastatin Calcium 40 MG DAILY 02/26 09 AC 02/27 PO 0829 Azithromycin 500 MG Q24H 02/26 1230 AC 02/27 Sodium Chloride 250 ML IV 1228 Baclofen 10 MG TID 02/25 1719 AC 02/27 PO 0829 Buspirone HCl 15 MG TID 02/25 2100 AC 02/27 PO 0829 Ceftriaxone Sodium 1,000 MG Q24H 02/26 1200 AC 02/27 IV 1210 Divalproex Sodium 500 MG AT BEDTIME 02/25 2100 AC 02/26 PO 2023 Divalproex Sodium 250 MG AT BEDTIME 02/25 2100 AC 02/26 PO 202 Enoxaparin Sodium 40 MG DAILY 02/25 1454 AC 02/27 SC 0830 Gabapentin 600 MG Q4 02/25 1800 AC 02/27 PO 1054 Guaifenesin 10 ML Q6P PRN 02/25 2115 AC PO Insulin Aspart 0 TIDAC 02/25 1700 AC 02/27 SC 1210 Levothyroxine Sodium 0.175 MG DAILY AC 02/26 0700 AC 02/27 PO 0612 Melatonin 5 MG AT BEDTIME 02/26 2215 AC 02/26 PO 2219 Methylprednisolone 40 MG Q12 02/25 2100 DC 02/26 IV 02/26 2300 2021 Metoprolol Tartrate 50 MG ONCE ONE 02/27 0800 DC 02/27 PO 02/27 0801 0830 Metoprolol Tartrate 50 MG BID 02/25 2100 AC 02/27 PO 0614 Morphine Sulfate 15 MG Q8 02/25 2200 AC 02/27 PO 0611 Nicotine 14 MG DAILY 02/26 0900 AC 02/27 TOP 0830 Omeprazole 40 MG DAILY AC 02/26 0700 AC 02/27 PO 0612 Oxycodone HCl 10 MG Q6 PRN 02/25 1800 AC 02/27 PO 1227 Perphenazine 4 MG 4 TIMES/DAY 02/25 2100 AC 02/27 PO 1210 Prednisone 40 MG DAILY 02/27 0900 AC 02/27 PO 0829 Pregabalin 100 MG BID 02/25 2100 AC 02/27 PO 0830 Ramelteon 8 MG QPM 02/25 2100 AC 02/26 PO 2024 Sodium Chloride 1,000 ML .Q10H 02/25 1500 DC 02/27 IV 0420 Last 24 Hrs of Lab/Asaf Results Last 24 Hrs of Labs/Mics: Laboratory Tests 02/27/18 0645: Anion Gap 8, Estimated GFR > 60, BUN/Creatinine Ratio 15.0, CBC w Diff NO MAN DIFF REQ, RBC 3.79 L, MCV 73.7 L, MCH 23.3 L, MCHC 31.6 L, RDW 19.8 H, MPV 8.8, Gran % 82.8 H, Lymphocytes % 6.8 L, Monocytes % 10.4 H, Eosinophils % 0, Basophils % 0, Absolute Granulocytes 7.4 H, Absolute Lymphocytes 0.6 L, Absolute Monocytes 0.9 H, Absolute Eosinophils 0, Absolute Basophils 0 Microbiology 02/26 1806 URINE ROUT: Legionella Antigen - COMP 02/26 1806 URINE ROUT: Streptococcus pneumoniae Antigen (M - COMP Assessment/Plan Assessment: 53-year-old female with past medical history of chronic pain, diabetes mellitus, fibromyalgia, VALERIE, hypothyroidism, depression, anxiety, PVD, GERD, hyperlipidemia, hypertension who presents with complaints of cough, difficulty in breathing with fever and myalgia. Patient admitted to [facility] for further evaluation and management. Assessment and plan 1. Community-acquired pneumonia 2. Hyponatremia 3. Adrenal insufficiency 4. Diabetes * On IV ceftriaxone and azithromycin. This can be switched to Ceftin and azithromycin if patient is planned for discharge today. Patient had high blood pressure of about 200/110. She was given 100 of metoprolol today morning. Repeat blood pressure 170/90. * By mouth prednisone. We will hold hydrocortisone for now. * Sputum culture, blood culture, urine for strep antigen, Legionella antigen- negative * Nicotine patch for nicotine addiction * Accu-Chek and sliding scale NovoLog insulin. * Chronic Hyponatremia follow-up sodium today is 134. We'll follow-up with sodium tomorrow. * Patient is on room air. Ambulatory stat-94% Diet-diabetic diet Code-full code Problem List: 1. Bilateral pneumonia Pain Ratin Pain Location: none Pain Goal: Remain pain free Pain Plan: tylenol Tomorrow's Labs & Rationales: cbc
[2018-02-27 08:28] LABS: ABSOLUTE BASOPHIL COUNT 0 /CUMM (0.0-0.2); ABSOLUTE EOSINOPHIL COUNT 0 /CUMM (0.0-0.7); ABSOLUTE GRANULOCYTE CT 7.4 /CUMM (1.4-6.5); ABSOLUTE LYMPH COUNT 0.6 /CUMM (1.2-3.4); ABSOLUTE MONOCYTE COUNT 0.9 /CUMM (0.10-0.60); BASOPHIL % 0 % (0.0-2.0); EOSINOPHIL % 0 % (0-5); GRANULOCYTE % 82.8 % (42.2-75.2); HEMATOCRIT 27.9 % (37-47); MEAN CORPUSCULAR HGB 23.3 PG (27.0-31.0); MEAN CORPUSCULAR HGB CONC 31.6 G/DL (33.0-37.0); MEAN CORPUSCULAR VOLUME 73.7 FL (81.0-99.0); MEAN PLATELET VOLUME 8.8 FL (7.4-10.4); PLATELET COUNT 216 /CUMM (130-400); RBC DISTRIBUTION WIDTH 19.8 % (11.5-14.5); RED BLOOD CELL CT 3.79 /CUMM (4.20-5.40); WHITE BLOOD CELL COUNT 8.9 /CUMM (4.8-10.8)
[2018-02-27 08:45] VITALS: BP 188/100
[2018-02-27] MEDS ORDERED: CEFUROXIME500 MG PO ×3 (09:25→14:14)
[2018-02-27] MEDS ORDERED: PREDNISONE10 M2 PO ×4 (09:28→14:14)
[2018-02-27 10:12] VITALS: BP 178/92
--- NOTE | 2018-02-27 10:51 | Patient Discharge Instructions ---
Discharge Instructions General Discharge Information You were seen/treated for: Community-acquired pneumonia Watch for these problems: In case of shortness of breath, chest pain, fever nausea, vomiting, abdominal pain please go to the nearest emergency room Special Instructions: Please follow-up with your primary care provider within 1-2 weeks of discharge Please start taking your hydrocortisone tablets after you finish her prednisone taper. Diet Continue normal diet: Yes Recommended Diet: Diabetic Activity Full Activity/No Limits: No Activity Self Limited: No Acute Coronary Syndrome Inclusion Criteria At DC or during hospital stay patient has or had the following: ACS DIAGNOSIS No Discharge Core Measures Meds if any: Prescribed or Continued at Discharge Meds if any: NOT Prescribed or Continued at Discharge Congestive Heart Failure Inclusion Criteria At DC or during hospital stay patient has or had the following: CHF DIAGNOSIS No Discharge Core Measures Meds if any: Prescribed or Continued at Discharge Meds if any: NOT Prescribed or Continued at Discharge Cerebrovascular accident Inclusion Criteria At DC or during hospital stay patient has or had the following: CVA/TIA Diagnosis No Discharge Core Measures Meds if any: Prescribed or Continued at Discharge Meds if any: NOT Prescribed or Continued at Discharge Venous thromboembolism Inclusion Criteria VTE Diagnosis No VTE Type NONE VTE Confirmed by (Test) NONE Discharge Core Measures - Per Current guidelines, there needs to be overlap - treatment for the first 5 days of Warfarin therapy. - If discharged on Warfarin prior to 5 days of - overlap therapy, the patient will need to be - assessed for post discharge needs including - *Post discharge parental anticoagulation - *Warfarin and/or parental anticoagulation education - *Follow up date to check INR post discharge At least 5 days overlap therapy as Inpatient No Meds if any: Prescribed or Continued at Discharge Note: Overlap Therapy is Warfarin and Anticoagulant Meds if any: NOT Prescribed or Continued at Discharge
[2018-02-27] MEDS ORDERED: AZITHROMYCIN500 M3 PO ×2 (11:14→14:14)
--- NOTE | 2018-02-27 11:40 | PN- Att Addend ---
Attending Addendum Attending Brief Note Patient seen and examined, breathing has improved but this morning her blood pressure was very high. She said that she had some pain but also she's feeling anxious to get out of here because her daughter is taking a very important exam tomorrow. Vital Signs Date Time Temp Pulse Resp B/P B/P Pulse O2 O2 Flow FiO2 Mean Ox Delivery Rate 02/27 1012 178/92 02/27 0948 95 Room Air 02/27 0830 81 198/112 02/27 0800 Room Air 02/27 0614 200/110 02/27 0603 97.4 68 20 200/110 96 Room Air 02/26 2205 97.9 73 20 160/80 95 02/26 2024 88 142/64 02/26 1823 97 Room Air 02/26 1427 97.8 80 17 142/80 96 Room Air on exam; aox3, nad. cv; s1,s2, rrr resp; clear abd; soft, nt, bs+ ext; no edema Laboratory Tests 02/27 0645 Chemistry Sodium (137 - 145 mmol/L) 136 L Potassium (3.5 - 5.1 mmol/L) 4.3 Chloride (98 - 107 mmol/L) 102 Carbon Dioxide (22 - 30 mmol/L) 27 Anion Gap (5 - 16) 8 BUN (7 - 17 mg/dL) 9 Creatinine (0.5 - 1.0 mg/dL) 0.6 Estimated GFR (>60 ml/min) > 60 BUN/Creatinine Ratio (7 - 25 %) 15.0 Hematology CBC w Diff NO MAN DIFF REQ WBC (4.8 - 10.8 /CUMM) 8.9 RBC (4.20 - 5.40 /CUMM) 3.79 L Hgb (12.0 - 16.0 G/DL) 8.8 L Hct (37 - 47 %) 27.9 L MCV (81.0 - 99.0 FL) 73.7 L MCH (27.0 - 31.0 PG) 23.3 L MCHC (33.0 - 37.0 G/DL) 31.6 L RDW (11.5 - 14.5 %) 19.8 H Plt Count (130 - 400 /CUMM) 216 MPV (7.4 - 10.4 FL) 8.8 Gran % (42.2 - 75.2 %) 82.8 H Lymphocytes % (20.5 - 51.1 %) 6.8 L Monocytes % (1.7 - 9.3 %) 10.4 H Eosinophils % (0 - 5 %) 0 Basophils % (0.0 - 2.0 %) 0 Absolute Granulocytes (1.4 - 6.5 /CUMM) 7.4 H Absolute Lymphocytes (1.2 - 3.4 /CUMM) 0.6 L Absolute Monocytes (0.10 - 0.60 /CUMM) 0.9 H Absolute Eosinophils (0.0 - 0.7 /CUMM) 0 Absolute Basophils (0.0 - 0.2 /CUMM) 0 A/P; 53-year-old female with past medical history significant for hypertension, hyperlipidemia, VALERIE, peripheral restaurant disease, GERD, adrenal insufficiency on chronic steroids, hypothyroidism, Admitted with Pneumonia. This morning blood pressure was very high. Patient received an extra dose of metoprolol. We'll monitor the blood pressure. Patient has been switched to oral prednisone. She really likes to go home. I have asked nursing to check her ambulatory O2 sat. If her blood pressures improved by later today and we can discharge her on oral antibiotics if her oxygen is stable. Continue the rest of the management. Patient should be discharged on prednisone taper and when she is down to 10 mg of prednisone that she should resume back her home dose of hydrocortisone. The rest of her medications will be continued as it is. She will also be going home on oral abx.
[2018-02-27 14:00] VITALS: BP 172/88
--- NOTE | 2018-02-27 14:36 | Discharge Summary ---
Hospital Course Allergies: Coded Allergies: Penicillins (HIVES, RASH 02/24/16) hydromorphone (GI UPSET 02/24/16) Discharge Instructions Medications at Discharge Discharge Medications: Continue taking these medications: Gabapentin (Gabapentin) 600 MG TABLET 1 Tablet ORAL 6XDAILY Qty = 270 Comments: Last Taken: 08/16/17 Time: 10:50 AM Metformin HCl (Metformin HCl ER) 500 MG TAB.ER.24 1 Tablet ORAL TWICE DAILY Comments: NOT GIVEN IN HOSPITAL Atorvastatin Calcium (Lipitor) 40 MG TABLET 1 Tablet ORAL DAILY Comments: Last Taken: 08/15 Time: 16:19 Omeprazole (Omeprazole) 40 MG CAPSULE.DR 1 Capsule ORAL DAILY Comments: Last Taken: 08/16/17 Time: 06:42 AM Metoprolol Tartrate (Metoprolol Tartrate) 50 MG TABLET 1 Tablet ORAL TWICE DAILY Qty = 180 Comments: Last Taken: 08/16/17 Time: 10:50 AM Pregabalin (Lyrica) 100 MG CAPSULE 1 Capsule ORAL TWICE DAILY Qty = 60 Comments: Last Taken: 08/16/17 Time: 10:50 AM Levothyroxine Sodium (Synthroid) 175 MCG TABLET 1 Tablet ORAL DAILY BEFORE BREAKFAST Qty = 30 Instructions: . Comments: Last Taken: 08/15/17 Time: 06:30 AM Ramelteon (Rozerem) 8 MG TABLET 1 Tablet ORAL Every night Qty = 30 Instructions: . Comments: Last Taken: 08/15/17 Time: 21:30 Hydrocortisone (Cortef) 5 MG TABLET 4 Tablet ORAL Every Morning Hydrocortisone (Cortef) 5 MG TABLET 1 Tablet ORAL Every night Buspirone HCl (Buspirone HCl) 15 MG TABLET 1 Tablet ORAL THREE TIMES DAILY Morphine Sulfate (Morphine Sulfate ER) 15 MG TABLET.ER 1 Tablet ORAL THREE TIMES DAILY Divalproex Sodium (Depakote ER) 500 MG TAB.ER.24H 2 Tablet ORAL TAKE AT BEDTIME Qty = 30 Divalproex Sodium (Depakote ER) 250 MG TAB.ER.24H 2 Tablet ORAL TAKE AT BEDTIME Qty = 30 Perphenazine (Perphenazine) 4 MG TABLET 1 Tablet ORAL TAKE AT BEDTIME Qty = 30 Perphenazine/Amitriptyline HCl (Perphen-Amitrip 4 MG-10 MG Tab) 4 MG-10 MG TABLET 1 Tablet ORAL THREE TIMES DAILY Qty = 120 Baclofen (Baclofen) 10 MG TABLET 1 Tablet ORAL THREE TIMES DAILY Oxycodone HCl (Oxycodone HCl) 10 MG TABLET 1 Tablet ORAL Q6H Start taking the following new medications: Prednisone (Prednisone) 10 MG TABLET 1 Tablet ORAL DAILY Qty = 18 No Refills Instructions: ... Comments: please take 3 tab on February 28-March 02 Please take 2 tab on March 03-March 05 Please take 1 tab on March 06-March 08 please start taking your regular hydrocortisone After you finish a prednisone taper Azithromycin (Azithromycin) 500 MG TABLET 1 Tablet ORAL DAILY Qty = 2 No Refills Instructions: . Cefuroxime Axetil (Cefuroxime) 500 MG TABLET 1 Tablet ORAL TWICE DAILY Qty = 10 No Refills Instructions: .
== END 2018-02-27 16:42 | DRG 194 ==
LOC: ERH 10:04 → 2NA 14:12 → ERHI 14:12 → ENRESERV 15:17 → ENTRNSPT 16:34 → EDTRNSPTSTS 16:49 → 2NA 16:56 → CMPTRNSPT 17:08 → ENPENDDIS 02-27 15:11 → ENTRNSPT 02-27 16:14 → EDTRNSPTSTS 02-27 16:16 → 2NA 02-27 16:42 → CMPTRNSPT 02-27 17:35
PROVIDERS: Physician Assistant Medical; Student in an Organized Health Care Education/Training Program
DX: J18.9 Pneumonia, unspecified organism (principal); E27.40 Unspecified adrenocortical insufficiency; E87.1 Hypo-osmolality and hyponatremia; I10 Essential (primary) hypertension; K21.9 Gastro-esophageal reflux disease without esophagitis; G47.33 Obstructive sleep apnea (adult) (pediatric); M79.7 Fibromyalgia; I73.9 Peripheral vascular disease, unspecified; M54.9 Dorsalgia, unspecified; E03.9 Hypothyroidism, unspecified; Z79.84 Long term (current) use of oral hypoglycemic drugs; R09.02 Hypoxemia; F32.9 Major depressive disorder, single episode, unspecified; F41.9 Anxiety disorder, unspecified; E78.5 Hyperlipidemia, unspecified; F17.210 Nicotine dependence, cigarettes, uncomplicated; Z88.5 Allergy status to narcotic agent; Z88.0 Allergy status to penicillin; Z79.891 Long term (current) use of opiate analgesic; G25.81 Restless legs syndrome; Z90.49 Acquired absence of other specified parts of digestive tract; Z90.710 Acquired absence of both cervix and uterus; E11.9 Type 2 diabetes mellitus without complications
CPT/HCPCS: 2NASP; 36592; 71046; 82436; 87040; 87070; 87449; 87450; 93005; 93010; 96374; 96375; 99291; J0456; J0696; J1650; J2550; J2920; J3490; J7040

== ENCOUNTER 2018-02-28 08:48 | Inpatient (IN) | payer OTHER, MEDICARE ==
[~2018-02-28] VITALS: Ht 172.7 cm; Wt 118.6 kg
[~2018-02-28 08:48] MED LIST changes: +AZITHROMYCIN500 M3 PO; +BACLOFEN10 M1 PO; +BUSPIRONE HCL15 M1 PO; +CEFUROXIME500 MG PO; +CORTEF5 M1 PO; +DEPAKOTE ER250 M1 PO; +DEPAKOTE ER500 M1 PO; +PERPHEN-AMITRI1 EAC1 PO; +PERPHENAZINE4 M1 PO; +PREDNISONE10 M2 PO; +ZOHYDRO ER10 M1 PO
--- NOTE | 2018-02-28 09:55 | RADIOLOGY REPORT ---
EXAMINATION: XR PORTABLE CHEST CLINICAL INFORMATION: Shortness of breath. COMPARISON: 02/25/2018 TECHNIQUE: AP portable upright view of the chest FINDINGS: Graded opacities at the lung bases likely correspond to a combination of atelectasis and underpenetration of the overlying breast tissues. No focal consolidation is identified. No pleural effusion or pneumothorax. Cardiac and mediastinal contours are normal. Pulmonary vasculature is unremarkable. Osseous structures are normal in appearance. IMPRESSION: Mild bibasilar atelectasis. No focal consolidation is identified.
[2018-02-28 09:56] LABS: ABSOLUTE BASOPHIL COUNT 0 /CUMM (0.0-0.2); ABSOLUTE EOSINOPHIL COUNT 0 /CUMM (0.0-0.7); ABSOLUTE GRANULOCYTE CT 7.7 /CUMM (1.4-6.5); ABSOLUTE LYMPH COUNT 1.2 /CUMM (1.2-3.4); ABSOLUTE MONOCYTE COUNT 0.9 /CUMM (0.10-0.60); BASOPHIL % 0.1 % (0.0-2.0); EOSINOPHIL % 0.5 % (0-5); GRANULOCYTE % 77.7 % (42.2-75.2); HEMATOCRIT 31.8 % (37-47); MEAN CORPUSCULAR HGB 23.6 PG (27.0-31.0); MEAN CORPUSCULAR HGB CONC 32.3 G/DL (33.0-37.0); MEAN CORPUSCULAR VOLUME 73.2 FL (81.0-99.0); MEAN PLATELET VOLUME 7.8 FL (7.4-10.4); PLATELET COUNT 309 /CUMM (130-400); RBC DISTRIBUTION WIDTH 19.2 % (11.5-14.5); RED BLOOD CELL CT 4.35 /CUMM (4.20-5.40); WHITE BLOOD CELL COUNT 9.9 /CUMM (4.8-10.8)
--- NOTE | 2018-02-28 11:08 | History & Physical ---
Fiona Simpson 02/28/18 1107: General Information and HPI MD Statement: I have seen and personally examined TOSHA RAMESH and documented this H&P. Source of Information: patient, old records History of Present Illness: This is a 53-year-old lady with past medical history significant for empty sella syndrome,chronic pain, diabetes mellitus, fibromyalgia, VALERIE, hypothyroidism, depression, anxiety, PVD, GERD, hyperlipidemia, hypertension who presents to the hospital with dyspnea and chest pressure. She was admitted to the hospital for pneumonia and was discharged yesterday (on as azithromycin for 2 days, cefuroxime twice a day for 5 days). Per patient, she was at her [facility] until 5 am this morning when she woke up with difficulty breathing. Also noticed chest pressure. She was brought to the hospital by ambulance. Denies having any fever/chills. No cp or pressure at the time of our interview. Her dsypnea has much improved on venti mask oxygen. Allergies/Medications Allergies: Coded Allergies: Penicillins (HIVES, RASH 02/24/16) hydromorphone (GI UPSET 02/24/16) Home Med list Aspirin (Aspirin*) 325 MG TABLET 1 TAB PO DAILY CAD Atorvastatin Calcium (Lipitor) 40 MG TABLET 1 TAB PO DAILY CHOLESTEROL ( Reported) Baclofen 10 MG TABLET 1 TAB PO TID MUSCLE SPASMS (Reported) Buspirone HCl 15 MG TABLET 1 TAB PO TID ANXIETY/DEPRESSION (Reported) Cefuroxime Axetil (Cefuroxime) 250 MG TABLET 1 TAB PO Q12 PNA Clopidogrel Bisulfate (Plavix) 75 MG TABLET 1 TAB PO DAILY CAD Divalproex Sodium (Depakote ER) 500 MG TAB.ER.24H 2 TAB PO QHS MENTAL HEALTH (Reported) Divalproex Sodium (Depakote ER) 250 MG TAB.ER.24H 2 TAB PO QHS MENTAL HEALTH (Reported) Gabapentin 600 MG TABLET 1 TAB PO 6XDAILY NERVE PAIN (Reported) Heparin Sod,Porcine/0.9 % NaCl (Heparin 2,500 Unit/500 Ml-Ns) 2,500 UNIT/500 ML (5 UNIT/ML) IV.SOLN 1 UNIT IV CONTINUOUS ACS Hydrocortisone (Cortef) 5 MG TABLET 4 TAB PO QAM ADRENAL INSUFFICIENCY ( Reported) Hydrocortisone (Cortef) 5 MG TABLET 1 TAB PO QPM ADRENAL INSUFFICIENCY ( Reported) Levothyroxine Sodium (Synthroid) 175 MCG TABLET 1 TAB PO DAILY AC HYPOTHYROID . Metformin HCl (Metformin HCl ER) 500 MG TAB.ER.24 1 TAB PO BID DM (Reported) Metoprolol Tartrate 50 MG TABLET 1 TAB PO BID HEART/BP (Reported) Morphine Sulfate (Morphine Sulfate ER) 15 MG TABLET.ER 1 TAB PO TID PAIN ( Reported) Nitroglycerin (Nitro-Bid) 2 % OINT...G. 0.5 GM TOP Q6 PRN CHEST PAIN Omeprazole 40 MG CAPSULE.DR 1 CAP PO DAILY GI (Reported) Oxycodone HCl 10 MG TABLET 1 TAB PO Q6H PAIN (Reported) Perphenazine 4 MG TABLET 1 TAB PO QHS MENTAL HEALTH (Reported) Perphenazine/Amitriptyline HCl (Perphen-Amitrip 4 MG-10 MG Tab) 4 MG-10 MG TABLET 1 TAB PO 4 TIMES/DAY MENTAL HEALTH (Reported) Prednisone 10 MG TABLET 1 TAB PO DAILY pneumonia ... Pregabalin (Lyrica) 100 MG CAPSULE 1 CAP PO BID NERVE PAIN (Reported) Ramelteon (Rozerem) 8 MG TABLET 1 TAB PO QPM SLEEP . Past History Travel History Traveled to [place] past 21 day No Medical History Neurological: restless leg syndrome EENT: NONE Cardiovascular: hypertension, hyperlipidemia, PVD Respiratory: obstructive sleep apnea, pneumonia Gastrointestinal: GERD Hepatic: NONE Renal: NONE Musculoskeletal: fibromyalgia, CHRONIC BACK PROBLEMS Psychiatric: anxiety, depression, opioid dependence, on prescribed by pain management for chronic back pain--morphine sulfate and oxycodone Endocrine: diabetes, hypothyroidism, currently not taking her Synthroid with elevated TSH and low free T4 Blood Disorders: NONE Cancer(s): 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 BROTHER (Lung cancer). Psychosocial History Who Do You Live With? spouse, child Services at Home: None Primary Language: Tajik ETOH Use: denies use Illicit Drug Use: denies illicit drug use Functional Ability ADLs Independent: dressing, eating, toileting, bathing. Ambulation: independent IADLs Independent: shopping, housework, finances, food prep, telephone, transportation , medication admin. Review of Systems Review of Systems Constitutional: Denies: chills, diaphoresis, fever, malaise, weakness, unexplained weight loss. EENTM: Reports: no symptoms. Cardiovascular: Reports: palpitations. Denies: chest pain, edema, orthopena, peripheral edema, syncope. Respiratory: Reports: cough, short of breath, wheezing. Denies: hemoptysis, orthopnea, sputum production, stridor. GI: Denies: no symptoms, abdominal pain, bloating. Genitourinary: Reports: no symptoms. Musculoskeletal: Reports: no symptoms. Skin: Reports: no symptoms. Neurological/Psychological: Reports: no symptoms. Hematologic/Endocrine: Reports: no symptoms. Immunologic/Allergic: Reports: no symptoms. All Other Systems: Reviewed and Negative Exam & Diagnostic Data Last 24 Hrs of Vital Signs/I&O Vital Signs Date Time Temp Pulse Resp B/P B/P Pulse O2 O2 Flow FiO2 Mean Ox Delivery Rate 02/28 1030 97.0 92 22 164/89 100 Venti Mask 100% 02/28 0923 93 Part 60% ReBreather 02/28 0901 88 Aerosol 10L Mask 02/28 0849 98.0 94 30 181/103 80 Nasal 2.0L Cannula Intake & Output 02/28 1600 02/28 0800 02/28 0000 Intake Total Output Total Balance Patient 245 lb Weight Weight Reported by Patient Measurement Method Physical Exam General Appearance Cooperative, Mild Distress, lethargic Skin No Rashes, No Breakdown, No Significant Lesion Skin Temp/Moisture Exam: Warm/Dry Sepsis Skin Exam (color): Normal for Ethnicity HEENT Atraumatic, PERRLA, EOMI, Mucous Membr. moist/pink Neck Supple, No JVD, No thryomegaly, +2 Carotid Pulse wo Bruit, No LAD Lymphatic Cervical nl Cardiovascular Regular Rate, Normal S1, Normal S2, No Murmurs, Gallops, Rubs Lungs Normal Air Movement, minimal expiratory wheezes Abdomen Normal Bowel Sounds, Soft, No Tenderness, No Hepatospenomegaly, No Masses Neurological Normal Speech, Strength at 5/5 X4 Ext, Normal Tone, Sensation Intact, Cranial Nerves 3-12 NL, Reflexes 2+ Extremities No Clubbing, No Cyanosis, No Edema, Normal Pulses, No Tenderness/ Swelling Vascular Normal Pulses Rectal Refused rectal exam for guaiac test Last 24 Hrs of Labs/Asaf: Laboratory Tests 02/28/18 0920: Anion Gap 11, Estimated GFR > 60, BUN/Creatinine Ratio 16.7, Glucose 173 H, Calcium 8.9, Total Bilirubin 0.3, AST 16, ALT 19, Alkaline Phosphatase 72, Troponin I 0.21 *H, Total Protein 6.3, Albumin 3.5, Globulin 2.8, Albumin/ Globulin Ratio 1.3, D-Dimer High Sensitivty 387 H, CBC w Diff NO MAN DIFF REQ, RBC 4.35, MCV 73.2 L, MCH 23.6 L, MCHC 32.3 L, RDW 19.2 H, MPV 7.8, Gran % 77.7 H, Lymphocytes % 12.1 L, Monocytes % 9.6 H, Eosinophils % 0.5, Basophils % 0.1, Absolute Granulocytes 7.7 H, Absolute Lymphocytes 1.2, Absolute Monocytes 0.9 H, Absolute Eosinophils 0, Absolute Basophils 0 02/28/18 0910: pH 7.45, pCO2 38, pO2 70 L, HCO3 26, ABG O2 Sat (Measured) 93.0 L, P-50 (Temp Corrected) N, Carboxyhemoglobin 0.8 L, O2 Concentration % 7L, Temperature 98.0, O2 Delivery Method NEB TX, Phlebotomy Draw Site LEFT RADIAL Diagnostic Data EKG Results Sinus rhythm rate 75, no significant ST-T wave abnormalities, no significant change from prior CXR Results Mild bibasilar atelectasis. No focal consolidation is identified. Assessment/Plan Assessment: This is a 53-year-old lady with past medical history significant for empty sella syndrome,chronic pain, diabetes mellitus, fibromyalgia, VALERIE, hypothyroidism, depression, anxiety, PVD, GERD, hyperlipidemia, hypertension who presents to the hospital with dyspnea and chest pressure. She was noted to be in acute hypoxic respiratory failure and had elevated troponin without EKG changes. Problem list: #Acute hypoxic respiratory failure #NSTEMI rule out ACS #Hypokalemia #Chronic steroid use #Diabetes #Fibromyalgia/chronic pain Plan: azithromycin given elevated QTC Lyrica, morphine sulfate, oxycodone, gabapentin, baclofen: Reassess when to restart. CT CATHODE BUILDER checked, patient is on medical marijuana, morphine sulfite ER 15 mg 3 times a day, oxycodone 10 mg every 6, Lyrica 100 mg twice a day As Ranked By This Provider Problem List: 1. Elevated troponin 2. Acute respiratory failure with hypoxia Core Measures/Misc (07/03) Acute Coronary Syndrome ACS Diagnosis: No Congestive Heart Failure Congestive Heart Failure Diagnosis No Cerebrovascular Accident CVA/TIA Diagnosis: No VTE (View Protocol) VTE Risk Factors Age>40 No Mechanical VTE Prophylaxis d/t N/A MechProphylax Ordered No VTE Pharm Prophylaxis d/t NA PharmProphylax ordered Sepsis (View protocol) Sepsis Present: No Adelaida Andrade 02/28/18 1241: Attending MD Review Statement Attending Statement Attending MD Statement: examined this patient, discuss w/resident/PA/METAL BURNISHER, agreed w/resident/PA/METAL BURNISHER, discussed with family, reviewed EMR data (avail), discussed with nursing, discussed with case mgmt, reviewed images, amended to note Attending Assessment/Plan: 53 o/f recently admitted for pneumonia comes for shortness of breath sudden onset his am and chest tightness in daibetic female on chronic steroids and other neuropathic meds. Her cardiac enzymes is elevated in ER without ST elevation. Patient is admitted to telemetry for possible NSTEMI r/o ACS. Obtain serial cardiac enzymes, asa/stain/bbocker/heparin as per cardiology. Ischemic work up as per cardiology. Resume home meds for adrenal insufficency and complete course of antibitoics. gi/dvt prophyalxis full code.
[2018-02-28 12:38] VITALS: BP 134/90
[2018-02-28 15:00] VITALS: BP 148/100
--- NOTE | 2018-02-28 18:39 | Cons- Cardiology ---
General Information and HPI Consulting Request Date of Consult: 02/28/18 Requested By: Niles Yang MD History of Present Illness: Isabel is a 53 year old female with history of hypertension, dyslipidemia, diabetes and chronic pain syndrome. She was recently admitted for treatment of pneumonia. Earlier today this patient noted severe shortness of breath that is worse with minimal movement and is accompanied by orthopnea. She only has a minimal cough at this time. The patient also reports a mild left upper chest discomfort that is non-radiating. It is described as a burning and pressure sensation that is worse with deep inhalation or exhalation and is also exacerbated by manual palpation. Physical activity will also make the discomfort worse. There is no associated nausea or vomiting although the patient was diaphoretic earlier in the day. She also had some mild lightheadedness but is free of any palpitations. In the hospital, this patient is noted to have mildly elevated cardiac enzymes consistent with a NSTEMI. She does have an elevated D-dimer. The patient has some bilateral leg discomfort but this appears to be a chronic discomofort. Allergies/Medications Allergies: Coded Allergies: Penicillins (HIVES, RASH 02/24/16) hydromorphone (GI UPSET 02/24/16) Home Med List: Atorvastatin Calcium (Lipitor) 40 MG TABLET 1 TAB PO DAILY CHOLESTEROL ( Reported) Azithromycin 500 MG TABLET 1 TAB PO DAILY penumonia . Baclofen 10 MG TABLET 1 TAB PO TID MUSCLE SPASMS (Reported) Buspirone HCl 15 MG TABLET 1 TAB PO TID ANXIETY/DEPRESSION (Reported) Cefuroxime Axetil (Cefuroxime) 500 MG TABLET 1 TAB PO BID penumonia . Divalproex Sodium (Depakote ER) 500 MG TAB.ER.24H 2 TAB PO QHS MENTAL HEALTH (Reported) Divalproex Sodium (Depakote ER) 250 MG TAB.ER.24H 2 TAB PO QHS MENTAL HEALTH (Reported) Gabapentin 600 MG TABLET 1 TAB PO 6XDAILY NERVE PAIN (Reported) Hydrocortisone (Cortef) 5 MG TABLET 4 TAB PO QAM ADRENAL INSUFFICIENCY ( Reported) Hydrocortisone (Cortef) 5 MG TABLET 1 TAB PO QPM ADRENAL INSUFFICIENCY ( Reported) Levothyroxine Sodium (Synthroid) 175 MCG TABLET 1 TAB PO DAILY AC HYPOTHYROID . Metformin HCl (Metformin HCl ER) 500 MG TAB.ER.24 1 TAB PO BID DM (Reported) Metoprolol Tartrate 50 MG TABLET 1 TAB PO BID HEART/BP (Reported) Morphine Sulfate (Morphine Sulfate ER) 15 MG TABLET.ER 1 TAB PO TID PAIN ( Reported) Omeprazole 40 MG CAPSULE.DR 1 CAP PO DAILY GI (Reported) Oxycodone HCl 10 MG TABLET 1 TAB PO Q6H PAIN (Reported) Perphenazine 4 MG TABLET 1 TAB PO QHS MENTAL HEALTH (Reported) Perphenazine/Amitriptyline HCl (Perphen-Amitrip 4 MG-10 MG Tab) 4 MG-10 MG TABLET 1 TAB PO 4 TIMES/DAY MENTAL HEALTH (Reported) Prednisone 10 MG TABLET 1 TAB PO DAILY pneumonia ... Pregabalin (Lyrica) 100 MG CAPSULE 1 CAP PO BID NERVE PAIN (Reported) Ramelteon (Rozerem) 8 MG TABLET 1 TAB PO QPM SLEEP . Review of Systems Review of Systems: anxiety Past History Travel History Traveled to [place] past 21 day No Medical History Blood Transfusion Hx: No Neurological: restless leg syndrome EENT: NONE Cardiovascular: hypertension, hyperlipidemia, PVD Respiratory: obstructive sleep apnea, pneumonia Gastrointestinal: GERD Hepatic: NONE Renal: NONE Musculoskeletal: fibromyalgia, CHRONIC BACK PROBLEMS Psychiatric: anxiety, depression, opioid dependence, on prescribed by pain management for chronic back pain--morphine sulfate and oxycodone Endocrine: diabetes, hypothyroidism, currently not taking her Synthroid with elevated TSH and low free T4 Blood Disorders: NONE Cancer(s): NONE 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 BROTHER (Lung cancer). Psychosocial History Where Do You Live? Home Who Do You Live With? spouse, child Services at Home: None Primary Language: Sinhala Smoking Status: Current Everyday Smoker ETOH Use: denies use Illicit Drug Use: denies illicit drug use Functional Ability ADLs Independent: dressing, eating, toileting, bathing. Ambulation: independent IADLs Independent: shopping, housework, finances, food prep, telephone, transportation , medication admin. Exam & Diagnostic Data Vital Signs and I&O Vital Signs Date Time Temp Pulse Resp B/P B/P Pulse O2 O2 Flow FiO2 Mean Ox Delivery Rate 02/28 1500 97.3 79 20 148/100 93 Nasal 3.0L Cannula 02/28 1410 79 148/100 02/28 1244 98 Nasal 3.0L Cannula 02/28 1238 100 Part 60% ReBreather 02/28 1238 98.2 85 20 134/90 100 02/28 1200 97.8 77 22 125/81 100 Non 100% ReBreather 02/28 1030 97.0 92 22 164/89 100 Venti Mask 100% 02/28 0923 93 Part 60% ReBreather 02/28 0901 88 Aerosol 10L Mask 02/28 0849 98.0 94 30 181/103 80 Nasal 2.0L Cannula Intake & Output 02/28 1600 02/28 0800 02/28 0000 02/27 1600 02/27 0800 02/27 0000 Intake Total 380 Output Total Balance 380 Intake, Oral 380 Patient 261 lb Weight Weight Bed scale Measurement Method Physical Exam: General: WD/overweight female in NAD; alert and oriented x 3 HEENT: NC/AT, PERRL, EOMI Neck: no JVD, no carotid bruit Heart: RRR w/o murmur Chest: painful to manual palpation Lungs: clear bilaterally Abdomen: soft, obese, NT, +ve bowel sounds Extremities: no edema Assessment/Plan Assessment/Plan * This patient does have chest discomfort in addition to her positive cardiac enzymes which is consistent with a NSTEMI. The description of her pain however is somewhat atypical and there are not associated electocardiographic changes. In consideration of her lack of mobility, increased D-dimer and with shortness of breath being her most prominent complaint I am very suspicious that the elevated cardiac enzymes are due to a pulmonary embolism. Obtain a stat CT angiogram. Follow cardiac enzymes until they peak. * This patient will need to be on IV heparin and addition to aspirin 325mg daily and Plavix 75mg daily. * Continue a statin and her current dose of Metoprolol. We will hold off on NTG until her CT angiogram results are obtained. * Continue supplemental oxygen. * Keep NPO except for medications after midnight. * Obtain an echocardiogram. Consult Acknowledgment - Thank you for your consult request.
[2018-02-28 18:42] VITALS: BP 164/110
--- NOTE | 2018-02-28 19:56 | CT SCAN REPORT ---
EXAMINATION: CT ANGIOGRAM OF THE CHEST WITH AND WITHOUT CONTRAST (CT PULMONARY ANGIOGRAM FOR PE) CLINICAL INFORMATION: Shortness of breath. Chest pain. Increased oxygen demand. Elevated d-dimer. COMPARISON: Radiograph from earlier today. CT from 11/25/2016. TECHNIQUE: Prior to contrast administration, noncontrast localization images were obtained. Subsequently, multidetector volumetric imaging was performed from the thoracic inlet to below the diaphragms following the administration of 95 mL Optiray 320 intravenous contrast. No contrast reaction reported. Sagittal, coronal, and MIP oblique sagittal reformatted images were obtained on the CT workstation, uploaded to PACS, and reviewed. Total exam dose-length product thousand 161 mGy-cm. FINDINGS: QUALITY OF STUDY/CONTRAST BOLUS: Satisfactory PULMONARY ARTERIES: No central or segmental pulmonary emboli. THORACIC AORTA: No aneurysm or dissection. LUNG: The central airways are patent. There are diffuse groundglass and reticular opacities bilaterally. Subpleural reticulation present. Bibasilar patchy opacities seen. PLEURA: No pleural effusion or pneumothorax. MEDIASTINUM: Normal heart size. No pericardial effusion. Mildly prominent mediastinal lymph nodes are seen.. No evidence of septal bowing or right heart strain. CHEST WALL/AXILLA: No axillary or internal mammary lymphadenopathy. OSSEOUS STRUCTURES: No acute or suspicious osseous abnormality. Mild degenerative changes throughout the spine. UPPER ABDOMEN: Unremarkable. No reflux of contrast into the hepatic veins to suggest elevated right heart pressures. IMPRESSION: 1. No pulmonary embolism. 2. Bilateral airspace opacities with interstitial prominence. The appearance favors interstitial and alveolar edema, although atypical infectious process is possible. VTE: negative
--- NOTE | 2018-02-28 22:01 | Event Note ---
Event Note Event Note: S/B : Since around 6 PM patient complaining about worsening shortness of breath associated with desaturation to 80s. On examination patient's diaphoretic moderate respiratory distress. S1-S2 tachycardic around 6 PM her chest was clear to auscultation however approximately an hour later bilateral wheezing and crackles heard in all lung owen. Patient's troponin also increased from 0.21- 0.57. A/R: Informed Dr. Bates of the upward trend of troponin as well as patient's clinical status. CTA was recommended to rule out PE. Respiratory was called and patient was placed on nonrebreather which improved her oxygen saturation. She was also given nitroglycerin with improvement in her symptoms, 2 mg of morphine and one-time dose of IV Lasix. CTA done showed no evidence of PE, bilateral airspace opacities with interstitial prominence favoring alveolar edema versus atypical infectious process. Patient was placed on BiPAP for work of breathing. Md Pediatric Allergist was informed of the above events and sign out given to night TEAM
[2018-02-28 23:18] VITALS: BP 142/102
[2018-02-28 23:23] LABS: PTT > 120 SEC (25-37)
[2018-03-01 00:12] VITALS: BP 138/98
[2018-03-01 06:48] VITALS: BP 150/110
--- NOTE | 2018-03-01 08:02 | Patient Discharge Instructions ---
Discharge Instructions General Discharge Information You were seen/treated for: 1. Elevated troponin 2. Shortness of breath 3. PNA Watch for these problems: 1. CP 2. SOB 3. GARVIN Special Instructions: 1. Please take your meds as prescribed 2. Please follow up wtih your assistant clinical director 3. Please follow up with your PCP Diet Continue normal diet: No Recommended Diet: low salt Activity Activity Self Limited: Yes Acute Coronary Syndrome Inclusion Criteria At DC or during hospital stay patient has or had the following: ACS DIAGNOSIS No Discharge Core Measures Meds if any: Prescribed or Continued at Discharge Meds if any: NOT Prescribed or Continued at Discharge Congestive Heart Failure Inclusion Criteria At DC or during hospital stay patient has or had the following: CHF DIAGNOSIS Yes Discharge Core Measures Meds if any: Prescribed or Continued at Discharge Meds if any: NOT Prescribed or Continued at Discharge Cerebrovascular accident Inclusion Criteria At DC or during hospital stay patient has or had the following: CVA/TIA Diagnosis No Discharge Core Measures Meds if any: Prescribed or Continued at Discharge Meds if any: NOT Prescribed or Continued at Discharge Venous thromboembolism Inclusion Criteria VTE Diagnosis No VTE Type NONE VTE Confirmed by (Test) NONE Discharge Core Measures - Per Current guidelines, there needs to be overlap - treatment for the first 5 days of Warfarin therapy. - If discharged on Warfarin prior to 5 days of - overlap therapy, the patient will need to be - assessed for post discharge needs including - *Post discharge parental anticoagulation - *Warfarin and/or parental anticoagulation education - *Follow up date to check INR post discharge At least 5 days overlap therapy as Inpatient No Meds if any: Prescribed or Continued at Discharge Note: Overlap Therapy is Warfarin and Anticoagulant Meds if any: NOT Prescribed or Continued at Discharge
--- NOTE | 2018-03-01 08:16 | Discharge Summary ---
Visit Information Visit Dates Admission Date: 02/28/18 Discharge Date: 03/01/2018 Hospital Course Course Attending Physician: Adelaida Andrade MD Primary Care Physician: Rosey KINCAID,Krysta Narayanan Consulting Request: Consulting Specialty: Cardiology Hospital Course: This is a 53-year-old lady with past medical history significant for empty sella syndrome,chronic pain, diabetes mellitus, fibromyalgia, VALERIE, hypothyroidism, depression, anxiety, PVD, GERD, hyperlipidemia, hypertension who presents to the hospital with dyspnea and chest pressure. Notably, she was admitted to the hospital for pneumonia and was discharged the day before re-admission for PNA and was D/C on azithromycin for 2 days and Cefuroxime twice a day for 5 days). Overnight she developed worsening dyspnea and CTA showed new pulmonary edema. No evidence of PE. Trops peaked at 0.82 without significant EKG changes. She was started in Heparin gtt, ASA 325, Plavix and kept NPO. Her respiratory status supported by bipap and non-rebreather. Allergies: Coded Allergies: Penicillins (HIVES, RASH 02/24/16) hydromorphone (GI UPSET 02/24/16) Significant Procedures: Laboratory Tests 03/01 03/01 02/28 02/28 0650 0325 2130 1535 Chemistry Sodium (137 - 145 mmol/L) 136 L Potassium (3.5 - 5.1 mmol/L) 4.6 Chloride (98 - 107 mmol/L) 96 L Carbon Dioxide (22 - 30 mmol/L) 27 Anion Gap (5 - 16) 13 BUN (7 - 17 mg/dL) 12 Creatinine (0.5 - 1.0 mg/dL) 0.6 Estimated GFR (>60 ml/min) > 60 BUN/Creatinine Ratio (7 - 25 %) 20.0 Troponin I (< 0.11 ng/ml) 0.68 *H 0.82 *H 0.57 *H Coagulation APTT (25 - 37 SEC) Pending > 120 *H Toxicology Valproic Acid Pending 02/28 02/28 0920 0910 Blood Gas pH (7.35 - 7.45 PH) 7.45 pCO2 (35 - 45 TORR) 38 pO2 (80 - 100 TORR) 70 L HCO3 (21 - 28 MEQ/L) 26 ABG O2 Sat (Measured) (>96.0 %) 93.0 L P-50 (Temp Corrected) N Carboxyhemoglobin (1.5 - 5.0 %) 0.8 L O2 Concentration % 7L Temperature (97.0 - 100.0 FARH) 98.0 O2 Delivery Method NEB TX Chemistry Sodium (137 - 145 mmol/L) 139 Potassium (3.5 - 5.1 mmol/L) 3.2 L Chloride (98 - 107 mmol/L) 100 Carbon Dioxide (22 - 30 mmol/L) 28 Anion Gap (5 - 16) 11 BUN (7 - 17 mg/dL) 10 Creatinine (0.5 - 1.0 mg/dL) 0.6 Estimated GFR (>60 ml/min) > 60 BUN/Creatinine Ratio (7 - 25 %) 16.7 Glucose (65 - 99 mg/dL) 173 H Calcium (8.4 - 10.2 mg/dL) 8.9 Magnesium (1.6 - 2.3 mg/dL) 1.6 Total Bilirubin (0.2 - 1.3 mg/dL) 0.3 AST (14 - 36 U/L) 16 ALT (9 - 52 U/L) 19 Alkaline Phosphatase (<127 U/L) 72 Troponin I (< 0.11 ng/ml) 0.21 *H Ben-N-Mzohxmwuawz Pept (<125 pg/mL) 4930 H Total Protein (6.3 - 8.2 g/dL) 6.3 Albumin (3.5 - 5.0 g/dL) 3.5 Globulin (1.9 - 4.2 gm/dL) 2.8 Albumin/Globulin Ratio (1.1 - 2.2 %) 1.3 TSH (0.270 - 4.200 uIU/mL) 2.390 Free T4 (0.64 - 1.79 ng/dL) 1.68 Coagulation D-Dimer High Sensitivty (0 - 243 ng/ml) 387 H Hematology CBC w Diff NO MAN DIFF REQ WBC (4.8 - 10.8 /CUMM) 9.9 RBC (4.20 - 5.40 /CUMM) 4.35 Hgb (12.0 - 16.0 G/DL) 10.3 L Hct (37 - 47 %) 31.8 L MCV (81.0 - 99.0 FL) 73.2 L MCH (27.0 - 31.0 PG) 23.6 L MCHC (33.0 - 37.0 G/DL) 32.3 L RDW (11.5 - 14.5 %) 19.2 H Plt Count (130 - 400 /CUMM) 309 MPV (7.4 - 10.4 FL) 7.8 Gran % (42.2 - 75.2 %) 77.7 H Lymphocytes % (20.5 - 51.1 %) 12.1 L Monocytes % (1.7 - 9.3 %) 9.6 H Eosinophils % (0 - 5 %) 0.5 Basophils % (0.0 - 2.0 %) 0.1 Absolute Granulocytes (1.4 - 6.5 /CUMM) 7.7 H Absolute Lymphocytes (1.2 - 3.4 /CUMM) 1.2 Absolute Monocytes (0.10 - 0.60 /CUMM) 0.9 H Absolute Eosinophils (0.0 - 0.7 /CUMM) 0 Absolute Basophils (0.0 - 0.2 /CUMM) 0 Miscellaneous Phlebotomy Draw Site LEFT RADIAL Disposition Summary Disposition Principal Diagnosis: ACS Additional Diagnosis: PNA Discharge Disposition: other general hospital Discharge Instructions General Discharge Information Code Status: Full Code Patient's Diet: NPO Patient's Activity: TOLERATED Follow-Up Instructions/Appts: SEE ABOVE Medications at Discharge Discharge Medications: Stop taking the following medications: Azithromycin (Azithromycin) 500 MG TABLET ORAL DAILY Qty = 2 Cefuroxime Axetil (Cefuroxime) 500 MG TABLET ORAL TWICE DAILY Qty = 10 Continue taking these medications: Gabapentin (Gabapentin) 600 MG TABLET 1 Tablet ORAL 6XDAILY Qty = 270 Comments: Last Taken: 02/27/18 Time: 14:08 Metformin HCl (Metformin HCl ER) 500 MG TAB.ER.24 1 Tablet ORAL TWICE DAILY Comments: NOT GIVEN IN HOSPITAL Atorvastatin Calcium (Lipitor) 40 MG TABLET 1 Tablet ORAL DAILY Comments: Last Taken: 02/27/18 Time: 08:29 Omeprazole (Omeprazole) 40 MG CAPSULE.DR 1 Capsule ORAL DAILY Comments: Last Taken: 02/27/18 Time: 06:12 Metoprolol Tartrate (Metoprolol Tartrate) 50 MG TABLET 1 Tablet ORAL TWICE DAILY Qty = 180 Comments: Last Taken: 02/27/18 Time: 08:30 Pregabalin (Lyrica) 100 MG CAPSULE 1 Capsule ORAL TWICE DAILY Qty = 60 Comments: Last Taken: 02/27/18 Time: 08:30 Levothyroxine Sodium (Synthroid) 175 MCG TABLET 1 Tablet ORAL DAILY BEFORE BREAKFAST Qty = 30 Instructions: . Comments: Last Taken: 02/27/18 Time: 06:12 Ramelteon (Rozerem) 8 MG TABLET 1 Tablet ORAL Every night Qty = 30 Instructions: . Comments: Last Taken: 02/26/18 Time: 22:24 Hydrocortisone (Cortef) 5 MG TABLET 4 Tablet ORAL Every Morning Comments: NOT GIVEN IN THE HOSPTIAL Hydrocortisone (Cortef) 5 MG TABLET 1 Tablet ORAL Every night Comments: NOT GIVEN IN THE HOSPITAL. Buspirone HCl (Buspirone HCl) 15 MG TABLET 1 Tablet ORAL THREE TIMES DAILY Comments: Last Taken: 02/27/18 Time: 14:08 Morphine Sulfate (Morphine Sulfate ER) 15 MG TABLET.ER 1 Tablet ORAL THREE TIMES DAILY Comments: Last Taken: 02/27/18 Time: 14:08 Divalproex Sodium (Depakote ER) 500 MG TAB.ER.24H 2 Tablet ORAL TAKE AT BEDTIME Qty = 30 Comments: Last Taken: 02/26/18 Time: 20:24 Divalproex Sodium (Depakote ER) 250 MG TAB.ER.24H 2 Tablet ORAL TAKE AT BEDTIME Qty = 30 Comments: Last Taken: 02/26/18 Time: 20:2 Perphenazine (Perphenazine) 4 MG TABLET 1 Tablet ORAL TAKE AT BEDTIME Qty = 30 Comments: Last Taken: 02/27/18 Time: 12:10 Perphenazine/Amitriptyline HCl (Perphen-Amitrip 4 MG-10 MG Tab) 4 MG-10 MG TABLET 1 Tablet ORAL 4 TIMES A DAY Qty = 120 Comments: NOT GIVEN IN THE HOSPITAL Baclofen (Baclofen) 10 MG TABLET 1 Tablet ORAL THREE TIMES DAILY Comments: Last Taken: 02/27/18 Time: 14:08 Oxycodone HCl (Oxycodone HCl) 10 MG TABLET 1 Tablet ORAL Q6H Comments: Last Taken: 02/27/18 Time: 12:27 Prednisone (Prednisone) 10 MG TABLET 1 Tablet ORAL DAILY Qty = 18 Instructions: ... Comments: please take 3 tab on February 28-March 02 Please take 2 tab on March 03-March 05 Please take 1 tab on March 06-March 08 please start taking your regular hydrocortisone After you finish a prednisone taper Start taking the following new medications: Cefuroxime Axetil (Cefuroxime) 250 MG TABLET 1 Tablet ORAL EVERY 12 HOURS Qty = 6 No Refills Clopidogrel Bisulfate (Plavix) 75 MG TABLET 1 Tablet ORAL DAILY Qty = 30 No Refills Nitroglycerin (Nitro-Bid) 2 % OINT...G. 0.5 Gram On the skin EVERY SIX HOURS as needed for CHEST PAIN Qty = 1 No Refills Aspirin (Aspirin*) 325 MG TABLET 1 Tablet ORAL DAILY Qty = 30 No Refills Heparin Sod,Porcine/0.9 % NaCl (Heparin 2,500 Unit/500 Ml-Ns) 2,500 UNIT/500 ML (5 UNIT/ML) IV.SOLN 1 Unit INTRAVEN CONTINUOUS Qty = 1 No Refills Copies To: Rosey KINCAID,Krysta Narayanan Attending MD Review Statement Documenting Attending: Raymond KINCAID,Adelaida Other Findings: Patient NSTEMI being transferred to higher facility for cardiac catheterization as per cardiology recs. Continue antiplatelet therapy, b ellis, statin, anticaogualtion en route.
[2018-03-01 08:23] LABS: PTT 27 SEC (25-37)
[2018-03-01] MEDS ORDERED: CEFUROXIME250 M1 PO (08:23)
[2018-03-01] MEDS ORDERED: PLAVIX75 M1 PO (08:23)
[2018-03-01] MEDS ORDERED: ASPIRIN325 M2 PO (08:23)
[2018-03-01] MEDS ORDERED: NITRO-BID1 GM TOP (08:23)
--- NOTE | 2018-03-01 09:05 | RADIOLOGY REPORT ---
EXAMINATION: XR PORTABLE CHEST CLINICAL INFORMATION: Rule out pulmonary edema. Shortness of breath. COMPARISON: Chest CTA 02/28/2018. TECHNIQUE: Portable frontal view of the chest was obtained. FINDINGS: There are diffuse airspace opacities throughout both lungs as seen on the prior chest CTA. No confluent consolidation. No central vascular congestion. No pleural effusion or pneumothorax. The heart size is normal. IMPRESSION: Redemonstration of multifocal bilateral airspace opacities likely reflecting an infectious/inflammatory process. Edema is thought to be less likely.
[2018-03-01 09:38] VITALS: BP 150/110
[2018-03-01] MEDS ORDERED: HEPARIN 2,2500 UNIT/ IV (10:25)
[2018-03-01] MEDS ORDERED: HEPARIN-1/25000 UNI1 IV ×2 (10:30→10:34)
--- NOTE | 2018-03-01 16:14 | PN- Housestaff ---
Subjective Follow-up For: CHEST PRESSURE Tele-Events Since Last Visit: TACHYCARDIC Subjective: Saw pt at beside this AM. Yesterday evening she was suddenly SOB and had to be placed on non-rebreather and then bipap. See event note for further details. Denies any CP or Chest pressure this AM. Plan is for cardiac cath. Review of Systems Constitutional: Denies: chills, fever. EENTM: Reports: no symptoms. Cardiovascular: Denies: chest pain, peripheral edema. Respiratory: Reports: no symptoms, short of breath. Gastrointestinal: Reports: no symptoms. Genitourinary: Reports: no symptoms. Objective Last 24 Hrs of Vital Signs/I&O Vital Signs Date Time Temp Pulse Resp B/P B/P Pulse O2 O2 Flow FiO2 Mean Ox Delivery Rate 03/01 0949 88 100 03/01 0938 74 150/110 03/01 0820 98 BIPAP 40% 03/01 0815 74 99 03/01 0800 97 Nasal 4.0L Cannula 03/01 0648 98.2 73 20 150/110 100 BIPAP 03/01 0037 71 96 03/01 0012 77 138/98 03/01 0000 BIPAP 40% 02/28 2318 96.7 96 18 142/102 100 Nasal Cannula 02/28 2148 92 140/102 02/28 1951 BIPAP 60% 02/28 1950 115 98 02/28 1900 120 98 02/28 1842 103 26 164/110 86 Nasal 6.0L Cannula Intake & Output 03/01 1600 03/01 0800 03/01 0000 Intake Total 90 400 Output Total 1300 800 700 Balance -1300 -710 -300 Intake, IV 80 150 Intake, Oral 10 250 Number 0 Bowel Movements Output, Urine 1300 800 700 Patient 118.614 kg Weight Physical Exam General Appearance: Alert, Oriented X3, Cooperative, No Acute Distress Skin: No Significant Lesion HEENT: PERRLA, EOMI Neck: Supple Cardiovascular: Regular Rate, Normal S1, Normal S2, No Murmurs Lungs: diminished breath sounds Abdomen: Soft, No Tenderness Extremities: No Edema Current Medications: Current Medications Sig/Alden Start time Last Medication Dose Route Stop Time Status Admin Acetaminophen 650 MG .STK-MED ONE 03/01 0005 DC PO 03/01 0006 Acetaminophen 650 MG Q6P PRN 02/28 1445 DCD 03/01 PO 1038 Albuterol Sulfate 3 ML BID 02/28 2100 DCD 05 INH 0820 Aspirin 81 MG DAILY 03/01 0900 DC PO Aspirin 325 MG DAILY 03/01 0900 DCD 05 PO 0938 Atorvastatin Calcium 40 MG 1700 02/28 1700 DCD 05 PO 1727 Buspirone HCl 15 MG TID 05 1400 DCD 05 PO 0938 Cefuroxime Sodium 500 MG Q12 02/28 1205 DCD 05 PO 05 0901 0938 Clopidogrel Bisulfate 75 MG DAILY 02/28 2100 DCD 05 PO 2341 Divalproex Sodium 750 MG ONCE ONE 02/28 2345 DC 05 PO 05 2346 0025 Furosemide 20 MG DAILY 03/01 0900 DCD 03/01 IV 0935 Furosemide 20 MG ONCE ONE 02/28 2045 DC 05 IV 02/28 204 2148 Furosemide 20 MG ONCE ONE 02/28 1845 DC 02/28 IV 02/28 184 1844 Furosemide 40 MG .STK-MED ONE 02/28 184 DC IV 02/28 1843 Heparin Sodium 25,000 UNIT Q24H 02/28 1300 DCD 02/28 (Porcine) IV 1411 Sodium Chloride 500 ML Hydrocortisone 20 MG 0800 03/01 0800 DCD 05 PO 1031 Hydrocortisone 5 MG 1600 02/28 1600 DCD 05 PO 1727 Insulin Aspart 0 TIDAC 02/28 1700 DCD 05 SC 1728 Levothyroxine Sodium 0.175 MG DAILY AC 02/28 1207 DCD 05 PO 0553 Lidocaine 1 PAT DAILY 02/28 1445 DCD 03/01 EXT 0938 Lorazepam 1 MG ONCE ONE 02/28 191 DC IV 02/28 1916 Metoprolol Tartrate 50 MG BID 02/28 1207 DCD 05 PO 0938 Morphine Sulfate 2 MG ONCE ONE 02/28 1900 DC 02/28 IV 02/28 1901 1856 Nitroglycerin 0.5 GM Q6 02/28 2359 DCD 03/01 TOP 0553 Nitroglycerin 0.4 MG .STK-MED ONE 02/28 1927 DC SL 02/28 1928 Nitroglycerin 0.4 MG ONCE ONE 02/28 1845 DC 02/28 SL 02/28 1846 1840 Omeprazole 40 MG DAILY AC 02/28 1208 DCD 03/01 PO 0553 Oxycodone/ 2 TAB Q6 02/28 1800 DCD 03/01 Acetaminophen PO 1127 Last 24 Hrs of Lab/Asaf Results Last 24 Hrs of Labs/Mics: Laboratory Tests 03/01/18 0807: CBC w Diff Cancelled, WBC Cancelled, RBC Cancelled, Hgb Cancelled, Hct Cancelled , MCV Cancelled, MCH Cancelled, MCHC Cancelled, RDW Cancelled, Plt Count Cancelled, MPV Cancelled 03/01/18 0650: APTT 27, Valproic Acid 48.1 L 03/01/18 0325: Troponin I 0.68 *H 02/28/18 2130: Anion Gap 13, Estimated GFR > 60, BUN/Creatinine Ratio 20.0, Troponin I 0.82 *H, APTT > 120 *H Assessment/Plan Assessment: This is a 53-year-old lady with past medical history significant for empty sella syndrome,chronic pain, diabetes mellitus, fibromyalgia, VALERIE, hypothyroidism, depression, anxiety, PVD, GERD, hyperlipidemia, hypertension who presents to the hospital with dyspnea and chest pressure. Notably, she was admitted to the hospital for pneumonia and was discharged the day before re-admission for PNA and was D/C on azithromycin for 2 days and Cefuroxime twice a day for 5 days). Overnight she developed worsening dyspnea and CTA showed new pulmonary edema. No evidence of PE. Trops peaked at 0.82 without significant EKG changes. She was started in Heparin gtt, ASA 325, Plavix and kept NPO. Her respiratory status supported by bipap and non-rebreather. Plan is for cardiac catheterization this AM. Problem List: 1. Hypoxia Pain Ratin Pain Location: NONE Pain Goal: Remain pain free Pain Plan: CBC BEP Tomorrow's Labs & Rationales: NONE Consulting Request: Consulting Specialty: Cardiology
--- NOTE | 2018-03-01 20:44 | ED GENERAL ADULT ---
See Addendum History of Present Illness General Chief Complaint: Dyspnea (COPD, CHF, Other) Stated Complaint: SOB DISCHARGED 2 DAYS AGO Source: patient Exam Limitations: no limitations Vital Signs & Intake/Output Vital Signs & Intake/Output Vital Signs Date Time Temp Pulse Resp B/P B/P Pulse O2 O2 Flow FiO2 Mean Ox Delivery Rate 03/01 0949 88 100 03/01 0938 74 150/110 03/01 0820 98 BIPAP 40% 03/01 0815 74 99 03/01 0800 97 Nasal 4.0L Cannula 03/01 0648 98.2 73 20 150/110 100 BIPAP 03/01 0037 71 96 03/01 0012 77 138/98 03/01 0000 BIPAP 40% 02/28 2318 96.7 96 18 142/102 100 Nasal Cannula 02/28 2148 92 140/102 ED Intake and Output 03/01 0000 02/28 1200 Intake Total 600 180 Output Total 700 Balance -100 180 Intake, IV 150 Intake, Oral 450 180 Number 0 Bowel Movements Output, Urine 700 Patient 262 lb 245 lb Weight Weight Bed scale Reported by Patient Measurement Method Allergies Coded Allergies: Penicillins (HIVES, RASH 02/24/16) hydromorphone (GI UPSET 02/24/16) Reconcile Medications Aspirin (Aspirin*) 325 MG TABLET 1 TAB PO DAILY CAD Atorvastatin Calcium (Lipitor) 40 MG TABLET 1 TAB PO DAILY CHOLESTEROL ( Reported) Baclofen 10 MG TABLET 1 TAB PO TID MUSCLE SPASMS (Reported) Buspirone HCl 15 MG TABLET 1 TAB PO TID ANXIETY/DEPRESSION (Reported) Cefuroxime Axetil (Cefuroxime) 250 MG TABLET 1 TAB PO Q12 PNA Clopidogrel Bisulfate (Plavix) 75 MG TABLET 1 TAB PO DAILY CAD Divalproex Sodium (Depakote ER) 500 MG TAB.ER.24H 2 TAB PO QHS MENTAL HEALTH (Reported) Divalproex Sodium (Depakote ER) 250 MG TAB.ER.24H 2 TAB PO QHS MENTAL HEALTH (Reported) Gabapentin 600 MG TABLET 1 TAB PO 6XDAILY NERVE PAIN (Reported) Heparin Sod,Porcine/0.9 % NaCl (Heparin 2,500 Unit/500 Ml-Ns) 2,500 UNIT/500 ML (5 UNIT/ML) IV.SOLN 1 UNIT IV CONTINUOUS ACS Hydrocortisone (Cortef) 5 MG TABLET 4 TAB PO QAM ADRENAL INSUFFICIENCY ( Reported) Hydrocortisone (Cortef) 5 MG TABLET 1 TAB PO QPM ADRENAL INSUFFICIENCY ( Reported) Levothyroxine Sodium (Synthroid) 175 MCG TABLET 1 TAB PO DAILY AC HYPOTHYROID . Metformin HCl (Metformin HCl ER) 500 MG TAB.ER.24 1 TAB PO BID DM (Reported) Metoprolol Tartrate 50 MG TABLET 1 TAB PO BID HEART/BP (Reported) Morphine Sulfate (Morphine Sulfate ER) 15 MG TABLET.ER 1 TAB PO TID PAIN ( Reported) Nitroglycerin (Nitro-Bid) 2 % OINT...G. 0.5 GM TOP Q6 PRN CHEST PAIN Omeprazole 40 MG CAPSULE.DR 1 CAP PO DAILY GI (Reported) Oxycodone HCl 10 MG TABLET 1 TAB PO Q6H PAIN (Reported) Perphenazine 4 MG TABLET 1 TAB PO QHS MENTAL HEALTH (Reported) Perphenazine/Amitriptyline HCl (Perphen-Amitrip 4 MG-10 MG Tab) 4 MG-10 MG TABLET 1 TAB PO 4 TIMES/DAY MENTAL HEALTH (Reported) Prednisone 10 MG TABLET 1 TAB PO DAILY pneumonia ... Pregabalin (Lyrica) 100 MG CAPSULE 1 CAP PO BID NERVE PAIN (Reported) Ramelteon (Rozerem) 8 MG TABLET 1 TAB PO QPM SLEEP . Triage Note: maybe Triage Nurses Notes Reviewed? yes Onset: Abrupt Duration: hour(s): Timing: recent history HPI: 03/01/18 8:30 PM 53-year-old female presented to the emergency department after recent discharge for pneumonia having severe shortness of breath. She denies any chest pain. She has severe COPD. No fever. The onset of the symptoms were abrupt, the duration has been the past 24 hours, the severity is significant as her symptoms required to come to the emergency department for care. Past History Travel History Traveled to [place] past 21 day No Medical History Any Pertinent Medical History? see below for history Neurological: restless leg syndrome EENT: NONE Cardiovascular: hypertension, hyperlipidemia, PVD Respiratory: obstructive sleep apnea, pneumonia Gastrointestinal: GERD Hepatic: NONE Renal: NONE Musculoskeletal: fibromyalgia, CHRONIC BACK PROBLEMS Psychiatric: anxiety, depression, opioid dependence, on prescribed by pain management for chronic back pain--morphine sulfate and oxycodone Endocrine: diabetes, hypothyroidism, currently not taking her Synthroid with elevated TSH and low free T4 Blood Disorders: NONE Cancer(s): NONE CORN SHUCKER/Reproductive: NONE History of MRSA: No History of VRE: No History of CDIFF: No Tetanus Vaccine: 09/08/15 Surgical History Surgical History: cholecystectomy, , hysterectomy, BACK SX SPLENECTOMY Psychosocial History Who do you live with Family Services at Home None What is your primary language Urdu Family History Family History, If Any: FATHER (Lung cancer). BROTHER (Lung cancer). Hx Contributory? No Review of Systems Review of Systems Constitutional: Denies: fever. EENTM: Reports: no symptoms. Respiratory: Reports: cough, short of breath. Cardiovascular: Denies: chest pain. GI: Denies: abdominal pain. Genitourinary: Reports: no symptoms. Musculoskeletal: Reports: no symptoms. Skin: Reports: no symptoms. Neurological/Psychological: Reports: no symptoms. Hematologic/Endocrine: Reports: no symptoms. Immunologic/Allergic: Reports: no symptoms. Physical Exam Physical Exam General Appearance: alert, awake, anxious, moderate distress Head: atraumatic, normal appearance Eyes: Bilateral: normal appearance, PERRL, EOMI. Ears, Nose, Throat: normal pharynx, normal ENT inspection Neck: normal inspection, supple Respiratory: rhonchi, wheezing Cardiovascular: regular rate/rhythm Peripheral Pulses: 4+ radial (L), 4+ ulnar (L) Gastrointestinal: non-tender Back: decreased range of motion Extremities: no edema Neurologic/Psych: no motor/sensory deficits, awake, alert, oriented x 3 Skin: intact, normal color, warm/dry Core Measures ACS in differential dx? Yes CVA/TIA Diagnosis: No Sepsis Present: No Sepsis Focused Exam Completed? No Progress Differential Diagnoses I considered the following diagnoses in my evaluation of the patient: [COPD exacerbation, pneumothorax, pneumonia, CHF, pulmonary embolism, non-ST segment elevation OH] Plan of Care: Orders Procedure Date/time Status BASIC ELECTROLYTES PLUS BUN&CR 03/01 0807 Active Change service to 03/01 0657 Active PARTIAL THROMBOPLASTIN TIME 03/01 0600 Complete DEPAKOTE LEVEL 03/01 0600 Complete TROPONIN LEVEL 03/01 0330 Complete EKG 03/01 0330 Active Discharge Patient 03/01 UNK Active MISSING MEDICATION FORM 03/01 UNK Active EKG 02/28 2339 Active BIPAP 02/28 UNK Complete Nursing Misc 02/28 UNK Active EKG 02/28 UNK Active Laboratory Tests 03/01/18 0807: CBC w Diff Cancelled, WBC Cancelled, RBC Cancelled, Hgb Cancelled, Hct Cancelled , MCV Cancelled, MCH Cancelled, MCHC Cancelled, RDW Cancelled, Plt Count Cancelled, MPV Cancelled 03/01/18 0650: APTT 27, Valproic Acid 48.1 L 03/01/18 0325: Troponin I 0.68 *H 02/28/18 2130: Anion Gap 13, Estimated GFR > 60, BUN/Creatinine Ratio 20.0, Troponin I 0.82 *H, APTT > 120 *H CXR Impression: no infiltrates Initial ED EKG: NSR, nonspecific ST T wave chg Prior EKG: unchanged Departure Departure Disposition: STILL A PATIENT Condition: Stable Clinical Impression Primary Impression: Elevated troponin Secondary Impressions: Acute non-ST segment elevation myocardial infarction, COPD (chronic obstructive pulmonary disease) Referrals: Rosey KINCAID,Krysta Narayanan (PCP/Family) Departure Forms: Customer Survey General Discharge Information Prescriptions: Current Visit Scripts Cefuroxime Axetil (Cefuroxime) 1 TAB PO Q12 #6 TAB Clopidogrel Bisulfate (Plavix) 1 TAB PO DAILY #30 TAB Nitroglycerin (Nitro-Bid) 0.5 GM TOP Q6 PRN CHEST PAIN #1 UNIT Aspirin (Aspirin*) 1 TAB PO DAILY #30 TAB Heparin Sod,Porcine/0.9 % NaCl (Heparin 2,500 Unit/500 Ml-Ns) 1 UNIT IV CONTINUOUS #1 UNIT Admission Note Spoke With: Niles Yang MD Documentation of Exam: Documentation of any treatments & extenuating circumstances including Concerns Regarding Discharge (functional status, medication knowledge or non-compliance, living conditions, etc.) that warrant an admission rather than observation: [The patient needs admission for telemetry monitoring, serial troponins, oxygen, nebulizers every 4 hours, IV's airways, consider pulmonary consultation, cardiology consultation] I spoke with Dr. Bates who agreed with the plan to admit the patient to telemetry. Critical Care Note Critical Care Note Critical Care Time: 30-74 min
== END 2018-03-01 11:40 | disposition short-term general hospital (02) | DRG 280 ==
LOC: ERH 08:48 → ERHI 10:54 → 1NO 10:54 → ENRESERV 11:50 → ENTRNSPT 12:00 → EDTRNSPT 12:05 → EDTRNSPTSTS 12:05 → 1NO 12:08 → CMPTRNSPT 12:31 → 1NO 03-01 07:06 → ENPENDDIS 03-01 10:37 → 1NO 03-01 11:40
PROVIDERS: Emergency Medicine; Internal Medicine
DX: I21.4 Non-ST elevation (NSTEMI) myocardial infarction (principal); J18.9 Pneumonia, unspecified organism; J96.01 Acute respiratory failure with hypoxia; F11.20 Opioid dependence, uncomplicated; E11.51 Type 2 diabetes mellitus with diabetic peripheral angiopathy without gangrene; G25.81 Restless legs syndrome; I10 Essential (primary) hypertension; E78.5 Hyperlipidemia, unspecified; G47.33 Obstructive sleep apnea (adult) (pediatric); K21.9 Gastro-esophageal reflux disease without esophagitis; M79.7 Fibromyalgia; F41.9 Anxiety disorder, unspecified; F32.9 Major depressive disorder, single episode, unspecified; Z79.52 Long term (current) use of systemic steroids; E87.6 Hypokalemia; Z79.84 Long term (current) use of oral hypoglycemic drugs; I73.9 Peripheral vascular disease, unspecified; Z88.5 Allergy status to narcotic agent; Z88.0 Allergy status to penicillin; Z79.82 Long term (current) use of aspirin; Z90.49 Acquired absence of other specified parts of digestive tract; M54.5 Low back pain; Z90.710 Acquired absence of both cervix and uterus
CPT/HCPCS: 1NP; 36415; 36592; 71045; 82436; 93005; 93010; 96374; 99291; J1644; J1940; J2930; J3490